=== PATIENT | male | born 1970 | race Caucasian/White ===

== ENCOUNTER 2020-02-02 12:59 | Emergency (ER) | payer SELFPAY ==
[~2020-02-02] VITALS: Ht 180.3 cm; Wt 109.1 kg
[2020-02-02 13:10] VITALS: Ht 180.3 cm; Wt 109.1 kg
[2020-02-02] MEDS ORDERED: GABAPENTIN300 MG PO (13:11)
[2020-02-02] MEDS ORDERED: PERCOCET 10-321 EAC1 PO (13:11)
[2020-02-02] MEDS ORDERED: LISINOPRIL20 MG PO (13:12)
[2020-02-02] MEDS ORDERED: HYDROCODON-ACE1 EAC2 PO (14:19)
[2020-02-02 14:52] VITALS: BP 152/84
== END 2020-02-02 14:53 | disposition home or self-care (01) ==
LOC: D.ER 12:59
DX: S32.039A Unspecified fracture of third lumbar vertebra, initial encounter for closed fracture (principal); M51.36 Other intervertebral disc degeneration, lumbar region; I10 Essential (primary) hypertension; Z72.0 Tobacco use; M54.5 Low back pain; X58.XXXA Exposure to other specified factors, initial encounter

== ENCOUNTER → 2020-04-05 | Emergency (ER) | payer OTHER ==
[~2020-04-05] VITALS: Ht 180.3 cm; Wt 104.5 kg
[~2020-04-05] MED LIST: GABAPENTIN300 MG PO; HYDROCODON-ACE1 EAC2 PO; LISINOPRIL20 MG PO; PERCOCET 10-321 EAC1 PO
[2020-04-05 11:02] VITALS: BP 156/94; Ht 180.3 cm; Wt 104.5 kg
[2020-04-05 11:51] LABS: BASOPHILS 0 % (0-2); EOSINOPHILS 0 % (0-7); HEMATOCRIT 34.2 % (42.0-54.0); HEMOGLOBIN 11.4 g/dL (13.5-17.5); IMMATURE GRANULOCYTES 0.4 % (0-5); LYMPHOCYTES 13.6 % (15-50); MCH 30.6 pg (26.0-34.0); MCHC 33.3 g/dL (31.0-37.0); MCV 91.7 fL (80.0-100.0); MEAN PLATELET VOLUME 8.3 fL (7.4-10.4); MONOCYTES 8.3 % (2-11); NEUTROPHILS 77.7 % (40-80); PLATELET COUNT 194 10x3/uL (130-400); RBC 3.73 10x6/uL (4.20-6.10); RDW 14.4 % (11.5-14.5); WBC 16.2 10x3/uL (4.8-10.8)
[2020-04-05 12:00] LABS: ANION GAP 14.7 mmol/L (8-16); CALCIUM 8.6 mg/dL (8.5-10.1); CARBON DIOXIDE 25.1 mmol/L (21.0-32.0); CREATININE - SERUM 1.3 mg/dL (0.6-1.3); POTASSIUM - SERUM 3.8 mmol/L (3.5-5.1)
[2020-04-05 12:05] LABS: ALBUMIN 4.2 g/dL (3.4-5.0); BILIRUBIN - TOTAL 0.65 mg/dL (0.2-1.3); INR 1.19 (0.85-1.17); PROTEIN - SERUM 7.7 g/dL (6.4-8.2)
== END | disposition home or self-care (01) ==
LOC: D.ER 10:50
PROVIDERS: Family Medicine
DX: L76.22 Postprocedural hemorrhage of skin and subcutaneous tissue following other procedure (principal); G89.18 Other acute postprocedural pain; M25.561 Pain in right knee; I10 Essential (primary) hypertension; Z96.651 Presence of right artificial knee joint

== ENCOUNTER 2020-10-29 18:42 | Inpatient (IN) | payer MEDICARE ==
[~2020-10-29] VITALS: Ht 180.3 cm; Wt 106.8 kg
[2020-10-29] MEDS ORDERED: BUTRANS1 EAC1 TRANSDERM (18:50)
[2020-10-29 19:25] LABS: BASOPHILS 0.1 % (0-2); EOSINOPHILS 0.7 % (0-7); HEMATOCRIT 41.3 % (42.0-54.0); HEMOGLOBIN 14.2 g/dL (13.5-17.5); IMMATURE GRANULOCYTES 0.4 % (0-5); LYMPHOCYTE ABS# 1.95 10x3/uL (1.32-3.57); LYMPHOCYTES 17.3 % (15-50); MCH 30.7 pg (26.0-34.0); MCHC 34.4 g/dL (31.0-37.0); MCV 89.4 fL (80.0-100.0); MONOCYTES 5.7 % (2-11); NEUTROPHIL ABS# 8.57 10x3/uL (1.78-5.38); NEUTROPHILS 75.8 % (40-80); PLATELET COUNT 148 10x3/uL (130-400); RBC 4.62 10x6/uL (4.20-6.10); RDW 13.4 % (11.5-14.5); WBC 11.3 10x3/uL (4.8-10.8)
[2020-10-29 19:36] LABS: CALC OSMOLALITY 273 mosm/kg (275-300); CALCIUM 9.4 mg/dL (8.5-10.1); CARBON DIOXIDE 24.4 mmol/L (21.0-32.0); CHLORIDE - SERUM 101 mmol/L (98-107); GLUCOSE 95 mg/dL (74-106); POTASSIUM - SERUM 3.7 mmol/L (3.5-5.1); SODIUM 136 mmol/L (136-145); UREA NITROGEN 17 mg/dL (7-18); eGFR NON AFRICAN AMERICAN 84 mL/min (90-120)
[2020-10-29] MEDS ORDERED: NEURONTIN600 MG PO (19:49)
[2020-10-29] MEDS ORDERED: SEROQUEL XR150 MG PO (19:49)
[2020-10-29] MEDS ORDERED: VALIUM10 MG PO (19:50)
[2020-10-29 19:52] LABS: APTT 33.4 SECONDS (22.8-39.4); INR 1.15 (0.85-1.17); PROTIME 13.6 SECONDS (11.6-15.0)
[2020-10-29 19:52] LABS: ALBUMIN 4.4 g/dL (3.4-5.0); ALKALINE PHOSPHATASE 143 U/L (30-120); ALT (SGPT) 30 U/L (10-68); AMYLASE - SERUM 19 U/L (25-115); BILIRUBIN - TOTAL 0.61 mg/dL (0.2-1.3); CKMB 3.3 U/L (0.0-3.6); CREATINE KINASE 204 UL (21-232); PROTEIN - SERUM 8.2 g/dL (6.4-8.2); TROPONIN-I < 0.017 ng/mL (0.000-0.060)
[2020-10-29 19:53] LABS: D-DIMER-QUANTITATIVE 1.22 ug/mLFEU (0.20-0.54)
[2020-10-29 19:53] LABS: LIPASE 48 U/L (73-393)
[2020-10-29 21:41] LABS: BILIRUBIN NEGATIVE (NEGATIVE); KETONE NEGATIVE (NEGATIVE); NITRITE NEGATIVE (NEGATIVE); UROBILINOGEN NORMAL mg/dL (< 2)
[2020-10-29 21:46] LABS: UDS - AMPHET NEGATIVE QUAL (NEGATIVE); UDS - BARB NEGATIVE QUAL (NEGATIVE); UDS - BENZO NEGATIVE QUAL (NEGATIVE); UDS - COCAINE NEGATIVE QUAL (NEGATIVE); UDS - OPIATE NEGATIVE QUAL (NEGATIVE); UDS - PCP NEGATIVE QUAL (NEGATIVE); UDS - THC NEGATIVE QUAL (NEGATIVE)
[2020-10-29 21:50] VITALS: BP 145/98
--- NOTE | 2020-10-29 22:41 | NUR ---
BANANA BAG, PROTONIX DRIP, AZITHROMYCIN, AND NS INFUSING AT TIME OF ADMIT.
[2020-10-29 22:42] VITALS: BP 149/98
[2020-10-29 23:00] VITALS: BP 151/107
[2020-10-29 23:26] VITALS: BP 151/107
[2020-10-30] VITALS (37 sets, daily range): BP systolic 108–179; BP diastolic 61–130
[2020-10-30 04:53] LABS: BASOPHILS 0.2 % (0-2); EOSINOPHILS 1.7 % (0-7); HEMATOCRIT 37.3 % (42.0-54.0); HEMOGLOBIN 12.6 g/dL (13.5-17.5); IMMATURE GRANULOCYTES 0.3 % (0-5); LYMPHOCYTE ABS# 1.96 10x3/uL (1.32-3.57); LYMPHOCYTES 22.6 % (15-50); MCH 30.6 pg (26.0-34.0); MCHC 33.8 g/dL (31.0-37.0); MCV 90.5 fL (80.0-100.0); MEAN PLATELET VOLUME 8.3 fL (7.4-10.4); MONOCYTES 6.6 % (2-11); NEUTROPHIL ABS# 5.95 10x3/uL (1.78-5.38); NEUTROPHILS 68.6 % (40-80); PLATELET COUNT 175 10x3/uL (130-400); RBC 4.12 10x6/uL (4.20-6.10); RDW 13.5 % (11.5-14.5); WBC 8.7 10x3/uL (4.8-10.8)
[2020-10-30 05:19] LABS: ALBUMIN 3.6 g/dL (3.4-5.0); ALKALINE PHOSPHATASE 119 U/L (30-120); ALT (SGPT) 25 U/L (10-68); BILIRUBIN - TOTAL 0.62 mg/dL (0.2-1.3); CALC OSMOLALITY 274 mosm/kg (275-300); CALCIUM 8.1 mg/dL (8.5-10.1); CARBON DIOXIDE 25.2 mmol/L (21.0-32.0); CHLORIDE - SERUM 104 mmol/L (98-107); GLUCOSE 103 mg/dL (74-106); POTASSIUM - SERUM 3.7 mmol/L (3.5-5.1); PROTEIN - SERUM 6.7 g/dL (6.4-8.2); SODIUM 137 mmol/L (136-145); UREA NITROGEN 15 mg/dL (7-18); eGFR NON AFRICAN AMERICAN 84 mL/min (90-120)
[2020-10-30 05:20] LABS: MAGNESIUM - SERUM 3.2 mg/dL (1.8-2.4)
--- NOTE | 2020-10-30 08:00 | NUR ---
DR. TURK HERE TO MEET PT. DISCUSSED BRONCH W/ HIM.
--- NOTE | 2020-10-30 08:30 | NUR ---
DR. MENA CALLED. PT REQUESTING HIS MEDICINES AND MED REC NOT DONE. DR. MENA REPORTS HE WILL BE AROUND SOON AND WILL WORK ON IT.
[2020-10-30 09:13] LABS: HEMATOCRIT 38.6 % (42.0-54.0); HEMOGLOBIN 13.3 g/dL (13.5-17.5)
--- NOTE | 2020-10-30 09:14 | NUR ---
DR. TURK HERE FOR ROUNDS.
--- NOTE | 2020-10-30 12:42 | NUR ---
BRONCH COMPLETE. BLOOD COLLECTED FROM LLL PER DR. TURK. 4 MG VERSED AND 50 MCG OF FENTANYL GIVEN. DID NOT REMAIN COMFORTABLE DURING PROCEDURE. PAGED DR. MENA ON PT'S BEHALF AND ASKED IF PATCH COULD BE REPLACED FOR PERCOCET AND HE OKAYS THIS.
--- NOTE | 2020-10-30 13:10 | NUR ---
CONSULTED DR. WOODALL. REPORTED S/P BRONCH WITH COLLECTION OF BLOOD. ORDERS RECEIVED FOR DIET, HE DOES NOT PLAN ON DOING A SCOPE.
[2020-10-30 14:58] LABS: HEMATOCRIT 41.7 % (42.0-54.0); HEMOGLOBIN 14.6 g/dL (13.5-17.5)
--- NOTE | 2020-10-30 18:40 | NUR ---
PERCOCET GIVEN FOR PAIN.
--- NOTE | 2020-10-30 18:50 | NUR ---
REPORTS HE TAKES METOPROLOL 25 MG AND ALSO THAT HE USUALLY TAKES HIS BP MEDS AT NIGHT. CALLED DR. MENA FOR METOPROLOL ORDER AND CALLED [facility] TO CHANGE TO NIGHTS.
[2020-10-30 21:49] LABS: HEMATOCRIT 39.6 % (42.0-54.0); HEMOGLOBIN 13.9 g/dL (13.5-17.5)
--- NOTE | 2020-10-30 23:18 | NUR ---
SPOKE WITH CHANO MOE ABOUT POSITIVE BLOOD CULTURES (GRAM + COCCI). NEW ORDERS TO BE PLACED.
[2020-10-31] VITALS (18 sets, daily range): BP systolic 107–164; BP diastolic 75–102
[2020-10-31 05:06] LABS: ALBUMIN 3.7 g/dL (3.4-5.0); ALKALINE PHOSPHATASE 131 U/L (30-120); ALT (SGPT) 26 U/L (10-68); BILIRUBIN - TOTAL 0.36 mg/dL (0.2-1.3); CALC OSMOLALITY 274 mosm/kg (275-300); CALCIUM 8.7 mg/dL (8.5-10.1); CARBON DIOXIDE 21.2 mmol/L (21.0-32.0); CHLORIDE - SERUM 102 mmol/L (98-107); CREATININE - SERUM 1.1 mg/dL (0.6-1.3); GLUCOSE 217 mg/dL (74-106); MAGNESIUM - SERUM 2.6 mg/dL (1.8-2.4); POTASSIUM - SERUM 4.6 mmol/L (3.5-5.1); PROTEIN - SERUM 7.3 g/dL (6.4-8.2); SODIUM 133 mmol/L (136-145); UREA NITROGEN 18 mg/dL (7-18); eGFR NON AFRICAN AMERICAN 75 mL/min (90-120)
[2020-10-31 09:07] LABS: BASOPHILS 0 % (0-2); EOSINOPHILS 0.1 % (0-7); HEMATOCRIT 39.2 % (42.0-54.0); HEMOGLOBIN 13.2 g/dL (13.5-17.5); IMMATURE GRANULOCYTES 0.4 % (0-5); LYMPHOCYTE ABS# 0.85 10x3/uL (1.32-3.57); LYMPHOCYTES 7.3 % (15-50); MCH 30.8 pg (26.0-34.0); MCHC 33.7 g/dL (31.0-37.0); MCV 91.4 fL (80.0-100.0); MEAN PLATELET VOLUME 8.7 fL (7.4-10.4); MONOCYTES 0.8 % (2-11); NEUTROPHIL ABS# 10.57 10x3/uL (1.78-5.38); NEUTROPHILS 91.4 % (40-80); PLATELET COUNT 203 10x3/uL (130-400); RBC 4.29 10x6/uL (4.20-6.10); RDW 13.5 % (11.5-14.5)
[2020-10-31 09:09] LABS: WBC 11.6 10x3/uL (4.8-10.8)
[2020-10-31 09:50] LABS: HEMATOCRIT 39.3 % (42.0-54.0); HEMOGLOBIN 13.5 g/dL (13.5-17.5)
[2020-10-31 14:11] LABS: FUNGUS STAIN Final report (())
[2020-10-31 14:31] LABS: HEMOGLOBIN 13.8 g/dL (13.5-17.5)
[2020-10-31 15:12] LABS: ACID FAST SMEAR Negative (()); AFB SPECIMEN PROCESSING Concentration (())
[2020-10-31 21:15] LABS: HEMOGLOBIN 13.1 g/dL (13.5-17.5)
[2020-11-01] VITALS (13 sets, daily range): BP systolic 98–172; BP diastolic 55–97
--- NOTE | 2020-11-01 00:09 | NUR ---
AT 2330 PT WOKE FROM DEEP SLEEP. GOT OUT OF BED AND ACCIDENTALLY PULLED LFA PIV OUT. MEDS PLACED TO RAC IV. REORIENTED PT. SEEMED DISORIENTED WHEN WAKING FROM SEROQUEL. PRESSURE HELD TO PIV SITE. SKIN CARE PROVIDED AND NEW TOP LINENS PLACED PIV SITE OOZED. PT ORIENTED AFTERWARDS. AWAKE CAN NOT GET OUT OF BED. WILL CONT TO MONITOR CLOSELY. PAIN UNDER CONTROL. STATED ON ARRIVAL PAIN WAS NOT UNDER CONTROL.
[2020-11-01 02:43] LABS: ALBUMIN 3.8 g/dL (3.4-5.0); ANION GAP 12.1 mmol/L (8-16); BILIRUBIN - TOTAL 0.38 mg/dL (0.2-1.3); CALCIUM 8.8 mg/dL (8.5-10.1); CARBON DIOXIDE 24.1 mmol/L (21.0-32.0); CREATININE - SERUM 1.2 mg/dL (0.6-1.3); MAGNESIUM - SERUM 2.4 mg/dL (1.8-2.4); POTASSIUM - SERUM 4.2 mmol/L (3.5-5.1); PROTEIN - SERUM 7.4 g/dL (6.4-8.2)
[2020-11-01 02:56] LABS: HEMATOCRIT 39.9 % (42.0-54.0); HEMOGLOBIN 13.6 g/dL (13.5-17.5); LYMPHOCYTE ABS# 1.14 10x3/uL (1.32-3.57); MCH 30.9 pg (26.0-34.0); MCHC 34.1 g/dL (31.0-37.0); MCV 90.7 fL (80.0-100.0); MEAN PLATELET VOLUME 8.5 fL (7.4-10.4); NEUTROPHIL ABS# 19.45 10x3/uL (1.78-5.38); PLATELET COUNT 195 10x3/uL (130-400); RDW 13.4 % (11.5-14.5); WBC 21.3 10x3/uL (4.8-10.8)
[2020-11-01 03:25] LABS: LYMPHOCYTES 6 % (15-50); NEUTROPHILS 93 % (40-80); PLATELET ESTIMATE DECREASED
[2020-11-01 08:20] LABS: HEMATOCRIT 39.2 % (42.0-54.0); HEMOGLOBIN 13.3 g/dL (13.5-17.5)
[2020-11-01 14:17] LABS: HEMATOCRIT 39.2 % (42.0-54.0); HEMOGLOBIN 13.2 g/dL (13.5-17.5)
[2020-11-01 21:58] LABS: HEMATOCRIT 37.9 % (42.0-54.0); HEMOGLOBIN 12.9 g/dL (13.5-17.5)
[2020-11-02] VITALS: BP 145/57
--- NOTE | 2020-11-02 01:31 | NUR ---
PT WAS SITTING IN CHAIR, IN ROOM. RECEIVED REPORT ABOUT BUPRENORPHONE PATCHES AND THAT THE PATIENT WOULD LIKE TO HAVE ONE APPLIED. CALLED AND SPOKE TO CHANO MOE ABOUT PATCHES AND SITUATION. RECEIVED TELEPHONE ORDER FROM CHANO MOE THAT IT WS OKAY TO USE PATIENT SUPPLY OF THE TRANSDERMAL PATCHES AT THIS TIME.
[2020-11-02 04:00] VITALS: BP 157/98
[2020-11-02 07:00] LABS: BASOPHILS 0 % (0-2); EOSINOPHILS 0 % (0-7); HEMATOCRIT 37.8 % (42.0-54.0); HEMOGLOBIN 12.7 g/dL (13.5-17.5); IMMATURE GRANULOCYTES 0.8 % (0-5); LYMPHOCYTE ABS# 1.36 10x3/uL (1.32-3.57); LYMPHOCYTES 6.7 % (15-50); MCH 30.7 pg (26.0-34.0); MCHC 33.6 g/dL (31.0-37.0); MCV 91.3 fL (80.0-100.0); MEAN PLATELET VOLUME 8.7 fL (7.4-10.4); MONOCYTES 3.6 % (2-11); NEUTROPHIL ABS# 18.06 10x3/uL (1.78-5.38); NEUTROPHILS 88.9 % (40-80); PLATELET COUNT 200 10x3/uL (130-400); RBC 4.14 10x6/uL (4.20-6.10); RDW 13.5 % (11.5-14.5); WBC 20.3 10x3/uL (4.8-10.8)
[2020-11-02 07:23] LABS: ALBUMIN 3.5 g/dL (3.4-5.0); ALKALINE PHOSPHATASE 118 U/L (30-120); ALT (SGPT) 35 U/L (10-68); BILIRUBIN - TOTAL 0.31 mg/dL (0.2-1.3); CALCIUM 8.6 mg/dL (8.5-10.1); CARBON DIOXIDE 23.2 mmol/L (21.0-32.0); CHLORIDE - SERUM 102 mmol/L (98-107); CREATININE - SERUM 1.1 mg/dL (0.6-1.3); GLUCOSE 191 mg/dL (74-106); MAGNESIUM - SERUM 2.3 mg/dL (1.8-2.4); POTASSIUM - SERUM 3.9 mmol/L (3.5-5.1); SODIUM 137 mmol/L (136-145); eGFR NON AFRICAN AMERICAN 75 mL/min (90-120)
[2020-11-02 07:27] LABS: CALC OSMOLALITY 281 mosm/kg (275-300); UREA NITROGEN 21 mg/dL (7-18)
[2020-11-02 08:37] VITALS: BP 145/87
[2020-11-02 12:19] VITALS: BP 157/85
[2020-11-02 16:45] VITALS: BP 157/92
[2020-11-02 17:16] LABS: BILIRUBIN NEGATIVE (NEGATIVE); KETONE NEGATIVE (NEGATIVE); NITRITE NEGATIVE (NEGATIVE); UROBILINOGEN NORMAL mg/dL (< 2)
[2020-11-02 20:16] VITALS: BP 170/90
[2020-11-03] VITALS (16 sets, daily range): BP systolic 115–174; BP diastolic 76–107
--- NOTE | 2020-11-03 01:06 | NUR ---
PT WAS SITTING ON THE SIDE OF BED. NO DISTRESS NOTED. NO COMPLAINTS OF PAIN AT THAT TIME. RESPIRATIONS WNL. ALERT AND ORIENTED. AT BEDSIDE. CALL LIGHT IN REACH
[2020-11-03 06:26] LABS: BASOPHILS 0.1 % (0-2); EOSINOPHILS 0 % (0-7); HEMATOCRIT 37.2 % (42.0-54.0); HEMOGLOBIN 12.6 g/dL (13.5-17.5); IMMATURE GRANULOCYTES 3.7 % (0-5); LYMPHOCYTE ABS# 1.25 10x3/uL (1.32-3.57); LYMPHOCYTES 7.3 % (15-50); MCH 30.7 pg (26.0-34.0); MCHC 33.9 g/dL (31.0-37.0); MCV 90.7 fL (80.0-100.0); MEAN PLATELET VOLUME 8.8 fL (7.4-10.4); MONOCYTES 5.2 % (2-11); NEUTROPHIL ABS# 14.42 10x3/uL (1.78-5.38); NEUTROPHILS 83.7 % (40-80); PLATELET COUNT 192 10x3/uL (130-400); RDW 13.3 % (11.5-14.5); WBC 17.2 10x3/uL (4.8-10.8)
[2020-11-03 06:55] LABS: ALBUMIN 3.4 g/dL (3.4-5.0); ANION GAP 12.9 mmol/L (8-16); BILIRUBIN - TOTAL 0.33 mg/dL (0.2-1.3); CALCIUM 8.3 mg/dL (8.5-10.1); CARBON DIOXIDE 26.3 mmol/L (21.0-32.0); CREATININE - SERUM 1.2 mg/dL (0.6-1.3); MAGNESIUM - SERUM 2.2 mg/dL (1.8-2.4); POTASSIUM - SERUM 4.2 mmol/L (3.5-5.1); PROTEIN - SERUM 6.5 g/dL (6.4-8.2)
--- NOTE | 2020-11-03 08:27 | NUR ---
AAOX4 UPON ENTERING. ADMINISTERED MORNING MEDICATION AND PRN ATIVAN. TOELRATED WELL. BREAKFAST AT BEDSIDE. RESTING COMFORTABLY. DENIES ANY NEEDS. BED IN LOWEST POSITION, BED RAILS X2, CALL LIGHT WITHIN REACH. WILL CONTINUE POC.
--- NOTE | 2020-11-03 10:15 | NUR ---
PT ARRIVED TO UNIT AT THIS TIME PER DR TURK ORDERS FOR INTUBATION. HE IS ALERT AND ORIENTED, NERVOUS, BUT STATES HE UNDERSTANDS WHY HE NEEDS TO BE INTUBATED. HE HAS BRIGHT RED BLOOD ON HIS JAMISON FROM SPITTING OUT BLOOD, HE REQUESTS A SPIT CUP BECAUSE HE SAYS HE FREQUENTLY SPITS BLOOD UP SINCE THURSDAY. CONNECTED TO MONITORING EQUIPMENT. WILL NOTIFY DR TURK PT IS HERE FOR FURTHER ORDERS. PT CALLED AND NOTIFIED HER WHEN HE ARRIVED TO UNIT. SHE REQUESTS TO SPEAK WITH DR TURK, WILL NOTIFY HIM OF THIS TOO.
--- NOTE | 2020-11-03 10:25 | NUR ---
PT SPIT UP MORE FRESH BLOOD. CALLED TURK, ORDERED TO PUT ON NPO STATUS AND TRANSFERRED TO ICU FOR INTUBATION AND BRONCHOSCOPY. WHEELED OVER VIA WHEELCHAIR. BEDSIDE REPORT GIVEN TO ICU NURSE.
--- NOTE | 2020-11-03 10:48 | NUR ---
PER DR TURK, OBTAIN CONSENT FOR BRONCHOSCOPY AND CALL ANESTHESIA FOR INTUBATION, WILL DO BRONCH AFTER INTUBATION. SPOKE WITH DR BUCHANAN TO PROVIDE UPDATES ON PT. DR WOODALL STATES HE DOES NOT THINK THE BLEEDING IS GI RELATED, HE THINKS IT IS RESPIRATORY-RELATED, BUT IF IT IS DETERMINED THAT THE BLEEDING IS GI RELATED TO THEN LET HIM KNOW. HE STATES THAT IF IT WERE ESOPHAGEAL VARIGIES PT WOULD BE VOMITING UP BLOOD. ANESTHESIA PAGED AND NOTIFIED FOR PT TO BE INTUBATED.
[2020-11-03 11:23] LABS: INR 1.24 (0.85-1.17); PROTIME 14.4 SECONDS (11.6-15.0)
--- NOTE | 2020-11-03 11:54 | NUR ---
PT HAS BEEN INTUBATED BY ANESTHESIA, FOLLOWING THAT BRONCHOSCOPY WAS PERFORMED BY DR TURK WHO STATED THE BLEED IS NOT FROM RESPIRATORY, DR TURK THEN SPOKEN ON THE PHONE TO PTS DAUGHTER ALINE JAVEDSADIE CALLED AND UPDATED BY DR TURK AND THIS NURSE; DR WOODALL STATED HE WOULD BE BY IN A LITTLE BIT TO SEE PT. ALSO ORDERS FOR CVL CONSENT RECIEVED BY DR TURK TO PERFORM, CONSENTS OBTAINED BY PTS DAUGHTER. WILL CONTINUE TO CLOSELY OBSERVE.
[2020-11-03 12:06] LABS: BASOPHILS 0.1 % (0-2); EOSINOPHILS 0.1 % (0-7); HEMATOCRIT 36.7 % (42.0-54.0); HEMOGLOBIN 12.7 g/dL (13.5-17.5); IMMATURE GRANULOCYTES 5.8 % (0-5); LYMPHOCYTE ABS# 0.99 10x3/uL (1.32-3.57); LYMPHOCYTES 5.6 % (15-50); MCH 31.6 pg (26.0-34.0); MCHC 34.6 g/dL (31.0-37.0); MCV 91.3 fL (80.0-100.0); MONOCYTES 5.4 % (2-11); NEUTROPHIL ABS# 14.62 10x3/uL (1.78-5.38); PLATELET COUNT 194 10x3/uL (130-400); RBC 4.02 10x6/uL (4.20-6.10); RDW 13.4 % (11.5-14.5); WBC 17.6 10x3/uL (4.8-10.8)
[2020-11-03 12:15] LABS: ANION GAP 12.6 mmol/L (8-16); CALCIUM 8.4 mg/dL (8.5-10.1); CARBON DIOXIDE 26.8 mmol/L (21.0-32.0); CREATININE - SERUM 1.3 mg/dL (0.6-1.3); POTASSIUM - SERUM 4.4 mmol/L (3.5-5.1)
--- NOTE | 2020-11-03 14:53 | NUR ---
BEDSIDE CVL PLACED BY DR TURK, AFTER XRAY HE STATED IS OKAY FOR USE. ALSO VOISE TO DO EGD TODAY, CONSENTS OBTAINED FROM PTS DAUGHTER. VSS. WILL CONTINUE PLAN OF CARE.
--- NOTE | 2020-11-03 15:24 | NUR ---
1455 PT 2303, ON VENTALOR WITH DIPRAVAN SEDATION. 1510 124/82 91 21 98% SAT 1515 116/84 94 20 98% SAT 1517 PROCEDURE COMPLETE, DX EGD, NOTHING TO TREAT
--- NOTE | 2020-11-03 15:44 | NUR ---
SHANNON PLACED AT THIS TIME PER ORDERS, 16F, CLEAR YELLOW URINE FLOWING INTO CLOSED UNIT.
[2020-11-04] VITALS (23 sets, daily range): BP systolic 112–163; BP diastolic 69–95
--- NOTE | 2020-11-04 06:06 | NUR ---
AM LABS REVIEWED, NOTHING TO TREAT PER ELECTROLYTE PROTOCOL.
[2020-11-04 08:46] LABS: HEMATOCRIT 38.4 % (42.0-54.0); HEMOGLOBIN 12.6 g/dL (13.5-17.5); LYMPHOCYTE ABS# 1.37 10x3/uL (1.32-3.57); MCH 31.3 pg (26.0-34.0); MCHC 32.8 g/dL (31.0-37.0); MEAN PLATELET VOLUME 8.8 fL (7.4-10.4); NEUTROPHIL ABS# 13.19 10x3/uL (1.78-5.38); PLATELET COUNT 206 10x3/uL (130-400); RBC 4.02 10x6/uL (4.20-6.10); RDW 13.8 % (11.5-14.5); WBC 16.7 10x3/uL (4.8-10.8)
[2020-11-04 08:50] LABS: CALC OSMOLALITY 284 mosm/kg (275-300); CALCIUM 8.2 mg/dL (8.5-10.1); CARBON DIOXIDE 26.1 mmol/L (21.0-32.0); CHLORIDE - SERUM 102 mmol/L (98-107); GLUCOSE 216 mg/dL (74-106); POTASSIUM - SERUM 4.5 mmol/L (3.5-5.1); SODIUM 137 mmol/L (136-145); UREA NITROGEN 24 mg/dL (7-18); eGFR NON AFRICAN AMERICAN 84 mL/min (90-120)
[2020-11-04 08:51] LABS: MCV 95.5 fL (80.0-100.0)
[2020-11-04 08:56] LABS: ALBUMIN 3.3 g/dL (3.4-5.0); ALKALINE PHOSPHATASE 100 U/L (30-120); ALT (SGPT) 50 U/L (10-68); BILIRUBIN - TOTAL 0.37 mg/dL (0.2-1.3); PROTEIN - SERUM 6.5 g/dL (6.4-8.2)
[2020-11-04 09:10] LABS: LYMPHOCYTES 17 % (15-50); NEUTROPHILS 82 % (40-80); PLATELET ESTIMATE NORMAL
--- NOTE | 2020-11-04 10:22 | NUR ---
TUBE FEEDS STARTED AT THIS TIME PER DR TURK ORDERS. OGT VERIFICATION VIA AUSCULTATION/ASPIRATION. VSS. WILL CONTINUE PLAN OF CARE.
--- NOTE | 2020-11-04 17:17 | NUR ---
PTS CAME BY TO SEE PT AT THIS TIME. UPDATES PROVIDED. VSS. NO ACUTE DISTRESS NOTED. SHE STATED SHE WILL BE BY TOMORROW AGAIN.
--- NOTE | 2020-11-04 19:15 | NUR ---
PT SELF EXTUBATED, DR. TURK WAS CALLED PUT PT ON BIPAP 06/03/50% PT TOLERATING WELL
--- NOTE | 2020-11-04 19:31 | NUR ---
PT SELF EXTUBATED, SEDATION IMMEDIATELY STOPPED, PT PLACED ON BIPAP 50% PER RT, PT DROWSY BUT AROUSES EASILY TO VOICE AND IS ABLE TO FOLLOW COMMANDS, VSS, SAT 95%, MONITORING FROM BEDSIDE AT THIS TIME. DR TURK NOTIFIED, ORDERS RECEIVED.
--- NOTE | 2020-11-04 20:03 | NUR ---
PT CALLED PER PT REQUEST AND MESSAGE DELIVERED, UPDATED REGARDING NEW PLAN OF CARE-ALL QUESTIONS ANSWERED.
[2020-11-05] VITALS (19 sets, daily range): BP systolic 112–169; BP diastolic 65–99; Ht 180.3 cm; Wt 106.8 kg
[2020-11-05 08:13] LABS: BASOPHILS 0.1 % (0-2); EOSINOPHILS 0 % (0-7); HEMATOCRIT 37.9 % (42.0-54.0); HEMOGLOBIN 12.6 g/dL (13.5-17.5); IMMATURE GRANULOCYTES 8.3 % (0-5); LYMPHOCYTES 6.9 % (15-50); MCH 30.6 pg (26.0-34.0); MCHC 33.2 g/dL (31.0-37.0); MEAN PLATELET VOLUME 8.9 fL (7.4-10.4); MONOCYTES 5.5 % (2-11); NEUTROPHIL ABS# 13.71 10x3/uL (1.78-5.38); NEUTROPHILS 79.2 % (40-80); PLATELET COUNT 191 10x3/uL (130-400); RBC 4.12 10x6/uL (4.20-6.10); RDW 13.2 % (11.5-14.5); WBC 17.3 10x3/uL (4.8-10.8)
[2020-11-05 08:42] LABS: ALKALINE PHOSPHATASE 93 U/L (30-120); ALT (SGPT) 42 U/L (10-68); BILIRUBIN - TOTAL 0.47 mg/dL (0.2-1.3); CALC OSMOLALITY 279 mosm/kg (275-300); CALCIUM 8.2 mg/dL (8.5-10.1); CHLORIDE - SERUM 99 mmol/L (98-107); CREATININE - SERUM 0.9 mg/dL (0.6-1.3); GLUCOSE 213 mg/dL (74-106); POTASSIUM - SERUM 4.4 mmol/L (3.5-5.1); PROTEIN - SERUM 5.9 g/dL (6.4-8.2); SODIUM 135 mmol/L (136-145); UREA NITROGEN 25 mg/dL (7-18); eGFR NON AFRICAN AMERICAN > 90 mL/min (90-120)
--- NOTE | 2020-11-05 10:47 | NUR ---
DR CAMPBELL CONTACTED R/T PT REQUESTING BETTER PAIN CONTROL AND REPORTS HE IS ON PAIN MANAGEMENT. NEW ORDER REC' FOR MORPHINE 15 MG CR BID. ORDER PLACED ADN MED GIVEN.
--- NOTE | 2020-11-05 21:00 | NUR ---
A&O X 4, SPO2 90% ON 2L. DEEP BREATHING ENCOURAGED. CTM.
[2020-11-06 00:39] VITALS: BP 137/75
[2020-11-06 05:15] VITALS: BP 137/63
--- NOTE | 2020-11-06 05:28 | NUR ---
I have reviewed this patient and I concur with the Shift Assessment completed by the Licensed Practical Nurse today this shift.
[2020-11-06 06:39] LABS: APTT 26.3 SECONDS (22.8-39.4)
[2020-11-06 06:40] LABS: INR 1.19 (0.85-1.17)
[2020-11-06 06:44] LABS: CALC OSMOLALITY 284 mosm/kg (275-300); CALCIUM 8.5 mg/dL (8.5-10.1); CARBON DIOXIDE 31.5 mmol/L (21.0-32.0); CHLORIDE - SERUM 99 mmol/L (98-107); CREATININE - SERUM 1.1 mg/dL (0.6-1.3); MAGNESIUM - SERUM 2.1 mg/dL (1.8-2.4); POTASSIUM - SERUM 3.9 mmol/L (3.5-5.1); SODIUM 135 mmol/L (136-145); UREA NITROGEN 27 mg/dL (7-18); eGFR NON AFRICAN AMERICAN 75 mL/min (90-120)
--- NOTE | 2020-11-06 06:45 | NUR ---
RECEIVED BEDSIDE REPORT. PT LAYING IN BED, A&O X4. CVL TO LEFT IJ, PATENT AND INFUSING, NO REDNESS OR SWELLING. O2 SAT 97% ON 2L, VIA NC. PT ABLE TO AMBULATE AD OSKAR. EDUCATED PT ON CL AND NEEDS, VERBALIZED UNDERSTANDING. BED LOW, CL IN REACH.
[2020-11-06 06:46] LABS: GLUCOSE 271 mg/dL (74-106)
[2020-11-06 07:38] LABS: BASOPHILS 0.2 % (0-2); EOSINOPHILS 0 % (0-7); HEMATOCRIT 38.2 % (42.0-54.0); HEMOGLOBIN 13.4 g/dL (13.5-17.5); IMMATURE GRANULOCYTES 10.6 % (0-5); LYMPHOCYTE ABS# 1.48 10x3/uL (1.32-3.57); LYMPHOCYTES 8.9 % (15-50); MCH 31.3 pg (26.0-34.0); MCHC 35.1 g/dL (31.0-37.0); MEAN PLATELET VOLUME 8.8 fL (7.4-10.4); MONOCYTES 6.4 % (2-11); NEUTROPHIL ABS# 12.27 10x3/uL (1.78-5.38); NEUTROPHILS 73.9 % (40-80); PLATELET COUNT 160 10x3/uL (130-400); RBC 4.28 10x6/uL (4.20-6.10); WBC 16.6 10x3/uL (4.8-10.8)
[2020-11-06 07:43] VITALS: BP 135/60
[2020-11-06 07:46] LABS: MCV 89.3 fL (80.0-100.0)
[2020-11-06 12:35] VITALS: BP 125/80
[2020-11-06 15:00] VITALS: BP 120/82
--- NOTE | 2020-11-06 15:14 | NUR ---
OT NOTE: SEVERAL ATTEMPTS TO EVAL PT BUT UNABLE TO COMPLETE. WILL RE ATTEMPT TOMORROW. BON FISHER, OTR/L
[2020-11-06 16:09] LABS: ACID FAST SMEAR Negative (()); AFB SPECIMEN PROCESSING Concentration (())
--- NOTE | 2020-11-06 17:15 | NUR ---
PT C/O PAIN 8/10, GENERALIZED, PROVIDED MEDS PER ORDER, TOLERATED WELL. BED LOW, CL IN REACH.
[2020-11-06 21:11] VITALS: BP 167/82
--- NOTE | 2020-11-07 02:05 | NUR ---
REC'D WALKING ROUNDS CHGE OF SHIFT.MET COMING BACK FROM VENDING MACHINE EATING CUP ICECREAM.CHIPS, COOKIES SKINS HONEY BUN DECLINED FSBS AT WILL CONTINUE TO MONITOR FOR ANY CHGES AND FOLLOW CURRENT PLAN OF CARE.
[2020-11-07 04:37] VITALS: BP 175/87
--- NOTE | 2020-11-07 05:00 | NUR ---
I have reviewed this patient and I concur with the Shift Assessment completed by the Licensed Practical Nurse today this shift.
[2020-11-07 07:47] VITALS: BP 133/83
[2020-11-07 08:56] LABS: HEMATOCRIT 40.4 % (42.0-54.0); HEMOGLOBIN 13.9 g/dL (13.5-17.5); LYMPHOCYTE ABS# 2.72 10x3/uL (1.32-3.57); MCH 31.2 pg (26.0-34.0); MCHC 34.4 g/dL (31.0-37.0); MCV 90.8 fL (80.0-100.0); MEAN PLATELET VOLUME 8.8 fL (7.4-10.4); NEUTROPHIL ABS# 11.82 10x3/uL (1.78-5.38); PLATELET COUNT 140 10x3/uL (130-400); RBC 4.45 10x6/uL (4.20-6.10); RDW 13.4 % (11.5-14.5); WBC 18.3 10x3/uL (4.8-10.8)
[2020-11-07 09:10] LABS: CALC OSMOLALITY 285 mosm/kg (275-300); CALCIUM 8.6 mg/dL (8.5-10.1); CHLORIDE - SERUM 101 mmol/L (98-107); GLUCOSE 226 mg/dL (74-106); MAGNESIUM - SERUM 2.2 mg/dL (1.8-2.4); POTASSIUM - SERUM 3.7 mmol/L (3.5-5.1); SODIUM 137 mmol/L (136-145); UREA NITROGEN 26 mg/dL (7-18); eGFR NON AFRICAN AMERICAN 84 mL/min (90-120)
[2020-11-07 11:11] LABS: FUNGUS STAIN Final report (())
[2020-11-07 12:25] VITALS: BP 143/87
--- NOTE | 2020-11-07 12:56 | NUR ---
Nutrition follow-up: Pt receiving a regular diet PO intake fair to good at some meals Labs reviewed Wt: 237# Pt will be NPO with intubation for Bronch 11/08/20 RDN follow-up: 11/09/20
[2020-11-07 13:02] LABS: LYMPHOCYTES 27 % (15-50); MONOCYTES 13 % (2-11); NEUTROPHILS 52 % (40-80)
[2020-11-07 13:03] LABS: PLATELET ESTIMATE NORMAL
[2020-11-07 17:30] VITALS: BP 167/100
--- NOTE | 2020-11-07 17:58 | NUR ---
CHANGED PT CENTRAL LINE DRESSING AND HUBS. PATIENT TOLERATED WELL. SITE WNL.
--- NOTE | 2020-11-07 18:55 | NUR ---
bedside shift report completed RT in room with pt, pt with no distress noted, will contine to monitor
[2020-11-07 20:59] VITALS: BP 130/94
[2020-11-08] VITALS: BP 109/64
--- NOTE | 2020-11-08 03:46 | NUR ---
pt approx 1/4 cup bright red hemoptysis, VSS paged dr onofre
--- NOTE | 2020-11-08 03:56 | NUR ---
spoke to dr onofre notified of pt with 1/ c bright red hemoptysis new orders to give racimic/epi UD, and CXR continue to monitor
[2020-11-08 04:00] VITALS: BP 131/76
[2020-11-08 05:53] LABS: BASOPHILS 0.3 % (0-2); EOSINOPHILS 0 % (0-7); HEMATOCRIT 40.1 % (42.0-54.0); HEMOGLOBIN 13.8 g/dL (13.5-17.5); IMMATURE GRANULOCYTES 11.5 % (0-5); LYMPHOCYTE ABS# 1.37 10x3/uL (1.32-3.57); LYMPHOCYTES 6.4 % (15-50); MCHC 34.4 g/dL (31.0-37.0); MCV 90.1 fL (80.0-100.0); MEAN PLATELET VOLUME 8.5 fL (7.4-10.4); MONOCYTES 5.5 % (2-11); NEUTROPHIL ABS# 16.39 10x3/uL (1.78-5.38); NEUTROPHILS 76.3 % (40-80); PLATELET COUNT 161 10x3/uL (130-400); RBC 4.45 10x6/uL (4.20-6.10); RDW 13.2 % (11.5-14.5); WBC 21.5 10x3/uL (4.8-10.8)
[2020-11-08 06:04] LABS: CALCIUM 8.7 mg/dL (8.5-10.1); CARBON DIOXIDE 27.9 mmol/L (21.0-32.0); CHLORIDE - SERUM 98 mmol/L (98-107); CREATININE - SERUM 1.1 mg/dL (0.6-1.3); MAGNESIUM - SERUM 2.4 mg/dL (1.8-2.4); SODIUM 133 mmol/L (136-145); UREA NITROGEN 25 mg/dL (7-18); eGFR NON AFRICAN AMERICAN 75 mL/min (90-120)
[2020-11-08 06:05] LABS: INR 1.19 (0.85-1.17)
[2020-11-08 06:06] LABS: APTT 26.8 SECONDS (22.8-39.4); CALC OSMOLALITY 280 mosm/kg (275-300); GLUCOSE 289 mg/dL (74-106); POTASSIUM - SERUM 4.7 mmol/L (3.5-5.1)
[2020-11-08 08:16] VITALS: BP 131/78
--- NOTE | 2020-11-08 09:59 | NUR ---
I have reviewed this patient and I concur with the Shift Assessment completed by the Licensed Practical Nurse today this shift.
--- NOTE | 2020-11-08 10:43 | NUR ---
PATIENT C/O GAS PAIN ORDERED TUMS AND ADMINISTERED. CONTINUE WITH PLAN OF CARE
[2020-11-08 12:41] VITALS: BP 147/79
[2020-11-08 15:13] LABS: MACROPHAGES BF 7 %; NEUT - BF 84 %
--- NOTE | 2020-11-08 16:41 | NUR ---
OT NOTE: PT COMPLETED EOB SITTING WITH MOD I. PT COMPLETED BED MOB WITH SBA. PT COMPLETED ADL MOB SBA. PT EXHIBITED BUE AROM WITH FUNCTIONAL TASKS. PT DID WELL. THANK YOU,BUCK JOHN
[2020-11-08 17:06] VITALS: BP 138/70
[2020-11-08 20:00] VITALS: BP 130/82
[2020-11-09] VITALS: BP 122/72
[2020-11-09 04:00] VITALS: BP 123/72
[2020-11-09 04:25] LABS: HEMATOCRIT 40.6 % (42.0-54.0); HEMOGLOBIN 13.8 g/dL (13.5-17.5); MCV 91.2 fL (80.0-100.0); MEAN PLATELET VOLUME 8.9 fL (7.4-10.4); NEUTROPHIL ABS# 21.38 10x3/uL (1.78-5.38); PLATELET COUNT 165 10x3/uL (130-400); RBC 4.45 10x6/uL (4.20-6.10); RDW 13.5 % (11.5-14.5); WBC 27.3 10x3/uL (4.8-10.8)
[2020-11-09 04:27] LABS: APTT 24.8 SECONDS (22.8-39.4); INR 1.16 (0.85-1.17); PROTIME 13.7 SECONDS (11.6-15.0)
[2020-11-09 04:31] LABS: ANION GAP 10.4 mmol/L (8-16); CALCIUM 8.7 mg/dL (8.5-10.1); CARBON DIOXIDE 30.3 mmol/L (21.0-32.0); CREATININE - SERUM 1.2 mg/dL (0.6-1.3); MAGNESIUM - SERUM 2.2 mg/dL (1.8-2.4); POTASSIUM - SERUM 4.7 mmol/L (3.5-5.1)
[2020-11-09 04:52] LABS: LYMPHOCYTES 21 % (15-50); MONOCYTES 1 % (2-11); NEUTROPHILS 71 % (40-80); PLATELET ESTIMATE DECREASED
--- NOTE | 2020-11-09 07:14 | NUR ---
PT WAS ASSESSED AT THE BEGINNING OF THE SHIFT. HE IS ALERT AND ORIENTED, ABLE TO VERBALIZE NEEDS. HE WAS IN BED ASLEEP WITH ALL NIGHT UNTIL WE WOKE THEM UP FOR HIS HIBICLENS SHOWER AND BED CHANGE. WE THEN CHANGED THE LINENS AND HE REFUSED TO LEAVE HIS PJ BOTTOMS OFF AND THE BED WAS THEN DIRTY AGAIN. HE KNOWS HE IS NPO BUT WE FEEL HE HAS HAD A LITTLE BIT OF COFFEE.
[2020-11-09 08:55] VITALS: BP 149/94
--- NOTE | 2020-11-09 09:10 | NUR ---
PATIENT IS VERY ANXIOUS ABOUT PROCEDURE, STATED HE CALLED HIS FATHER AND COTTON BREEDER AND BOTH ADVISED HIM TO GET A SECOND OPINION AND HAVE PROCEDURE DONE AT A LATER TIME, PATIENT HAD CALLED [facility] SEVERAL TIMES THROUGHOUT THE EVENING AND THIS MORNING CAUSING DIRECTOR TO COME AND SPEAK TO TATIANA. PATIENT IS READY FOR DC HOME, IR DOCTOR AND JULIANA DENNIS CAME TO TALK TO PATIENT.SPOKE TO CHANO NICHOLE AND PATIENT NEEDS TO SEE DENTISTRY TEACHER BEFORE AGREEABLE TO DC. CONTINUE WITH PLAN OF CARE
--- NOTE | 2020-11-09 09:46 | NUR ---
PATIENT REFUSES TO TAKE ABX AND FLUIDS. STATES WANTS TO DC AND WANTS IV OUT. CHANO BARFIELD AWARE AND STATES NOT DC PATIENT AT THIS TIME. PATIENT AWARE AND ANGRY BUT STATES NOT SIGNING AMA. STATES WANTS TO BE DISCHARGED. STATES "THIS IS GETTING RIDICULOUS REALLY FAST." STATES WANTS TO TALK TO PARKER, PATIENT'S NURSE. PATIENT AWARE THAT NURSE IS IN ANOTHER ROOM AND WILL COME SEE HIM AFTER.
--- NOTE | 2020-11-09 09:49 | NUR ---
PATIENT COMING OUT TO DESK TO TALK TO NURSE. MADE PATIENT AWARE AGAIN THAT NURSE IS IN ANOTHER ROOM AND WILL SEE HIM AFTER.
--- NOTE | 2020-11-09 12:08 | NUR ---
PATIENT TO DC HOME, HAD JULIANA MONSON REMOVE PT IJ. PENDING PAPERWORK. CONTINUE WITH PLAN OF CARE
[2020-11-09] MEDS ORDERED: COLACE100 MG PO (12:09)
[2020-11-09] MEDS ORDERED: PROTONIX40 MG PO (12:09)
[2020-11-09] MEDS ORDERED: FLORAJEN3 CAPS460 MG PO (12:09)
[2020-11-09] MEDS ORDERED: MUCINEX DM ER1 EAC1 PO (12:09)
[2020-11-09] MEDS ORDERED: NICODERM CQ1 EAC3 TRANSDERM (12:10)
[2020-11-09] MEDS ORDERED: LOPRESSOR25 MG PO (12:10)
[2020-11-09] MEDS ORDERED: TESSALON PERLE100 MG PO (12:10)
[2020-11-09] MEDS ORDERED: IPRAT-ALBUT 0.5-3 ML INH (12:11)
[2020-11-09] MEDS ORDERED: ATROVENT 0.02%2.5 ML UPD (12:11)
[2020-11-09] MEDS ORDERED: VITAMIN B-1100 M1 PO (12:11)
[2020-11-09] MEDS ORDERED: FOLIC ACID1 MG PO (12:11)
[2020-11-09] MEDS ORDERED: VALIUM5 MG PO (12:12)
--- NOTE | 2020-11-09 13:39 | NUR ---
Nutrition follow-up: Diet order: NPO for procedure Pt was receiving a regular diet as tolerated PO intake good- 100% of most meals Labs reviewed Wt: 235# RDN will follow-up: 11/12/20
[2020-11-09] MEDS ORDERED: PREDNISONE10 MG PO (14:07)
--- NOTE | 2020-11-09 14:17 | NUR ---
I have reviewed this patient and I concur with the Shift Assessment completed by the Licensed Practical Nurse today this shift.
--- NOTE | 2020-11-09 14:33 | MORECARE ---
CASE MANAGEMENT DISCHARGE SUMMARY PATIENT: ANGEL KAUR UNIT: [id number] ADM DATE: 10/29/20 AGE: 50 : 68 SEX: M ROOM/BED: D.2209 AUTHOR: CHRISTIAN,DOC PHYSICIAN: REFERRING PHYSICIAN: ADELINA LOPEZ MD DATE OF SERVICE: 11/09/20 Case Management Discharge Planning Summary DCP REVIEW SUMMARY ANTICIPATED D/C DATE: EXPECTED LOS : CASE STATUS: DCP Initiated INITIAL REVIEW: 11/06/2020 INITIAL REVIEWER: Alivia Henry FINAL DISCHARGE DISPOSITION: : FINAL REVIEWER: FINAL REVIEW DATE: DCP Focus Questions & Answers - Added on: QUESTION: ANSWER : PROVIDER NETWORKING REVIEW DATE: 11/09/2020 SERVICE TYPE: Durable Medical Equipment REVIEWER: Alivia Henry PROVIDER: FINAL PROVIDER? : FINAL DATE/TIME: CT PATIENT: ANGEL KAUR ENCOUNTER: [id number] MEDICAL RECORD#: [id number] ADMISSION DATE: 10/29/2020 DISCHARGE DATE: ATTENDING MD: ADELINA BAÑUELOS : AGE: 50 MARITAL STATUS: S DC PLAN ID: [id number] FACILITY: [facility] PRINTED ON: 11/09/20 14:33 CT All edits/amendments must be made on the electronic document DICTATION DATE: 11/09/201432 VENDING SUPERVISOR: GERONIMO 11/09/201432 RPT#: [id number] DC DATE: STATUS: ADM IN [facility] [address] [place] [address] END OF REPORT
--- NOTE | 2020-11-09 14:47 | MORECARE ---
CASE MANAGEMENT DISCHARGE SUMMARY PATIENT: ANGEL KAUR UNIT: [id number] ADM DATE: 10/29/20 AGE: 50 : 68 SEX: M ROOM/BED: D.2209 AUTHOR: CHRISTIAN,DOC PHYSICIAN: REFERRING PHYSICIAN: ADELINA LOPEZ MD DATE OF SERVICE: 11/09/20 Case Management Discharge Planning Summary COMMENTS ENTERED DATE: 11/09/20 14:33 CT COMMENT TYPE: Discharge Planning REVIEWER: Alivia Henry CM met with patient at bedside after obtaining verbal consent. CM discussed availability / needs of home health, REHAB and medical equipment. PATIENT DENIES ANY DISCHARGE NEEDS OTHER THAN A NEBULIZER. I HAVE FAXED ORDER TO [facility] AND THEY WILL DELIVER TO PATIENT'S HOUSE. IMM SIGNED AND PLACED ON CHART. CM TO FOLLOW AND ASSIST NEEDED. DCP REVIEW SUMMARY ANTICIPATED D/C DATE: EXPECTED LOS : CASE STATUS: DCP Initiated INITIAL REVIEW: 11/06/2020 INITIAL REVIEWER: Alivia Henry FINAL DISCHARGE DISPOSITION: : FINAL REVIEWER: FINAL REVIEW DATE: DCP Focus Questions & Answers - Added on: QUESTION: ANSWER : PROVIDER NETWORKING REVIEW DATE: 11/09/2020 SERVICE TYPE: Durable Medical Equipment REVIEWER: Alivia Henry PROVIDER: FINAL PROVIDER? : FINAL DATE/TIME: CT PATIENT: ANGEL KAUR ENCOUNTER: [id number] MEDICAL RECORD#: [id number] ADMISSION DATE: 10/29/2020 DISCHARGE DATE: ATTENDING MD: ADELINA BAÑUELOS : AGE: 50 MARITAL STATUS: S DC PLAN ID: [id number] FACILITY: [facility] PRINTED ON: 11/09/20 14:47 CT All edits/amendments must be made on the electronic document DICTATION DATE: 11/09/201446 CAREER RESOURCE TECHNICIAN: DM 11/09/201446 RPT#: [id number] DC DATE: STATUS: ADM IN [facility] [address] [place] [address] END OF REPORT
[2020-11-09 16:09] LABS: FUNGUS STAIN Final report (())
[2020-11-09 18:08] LABS: ACID FAST SMEAR Negative (()); AFB SPECIMEN PROCESSING Concentration (())
[2020-11-12 15:11] LABS: FUNGUS MYCOLOGY CULTURE Preliminary report (())
[2020-11-13 10:12] LABS: FUNGUS CULTURE RESULT 1 Candida albicans (())
== END 2020-11-09 15:40 | disposition home or self-care (01) | DRG 193 ==
LOC: D.ER 18:42 → D.MS 21:17 → D.ICU 21:17 → D.MS 11-01 11:38 → D.ICU 11-03 10:11 → D.MS 11-05 18:25
PROVIDERS: Emergency Medicine; Family Medicine; Internal Medicine Pulmonary Disease; Radiology Diagnostic Radiology; ADMIT Family Medicine Adult Medicine; ATTEND Family Medicine Adult Medicine
PROC: 0B9J8ZX Drainage of Left Lower Lung Lobe, Via Natural or Artificial Opening Endoscopic, Diagnostic (ICD-10-PCS; principal; 2020-10-30)
PROC: 05HN33Z Insertion of Infusion Device into Left Internal Jugular Vein, Percutaneous Approach (ICD-10-PCS; 2020-11-03)
PROC: 0DJ08ZZ Inspection of Upper Intestinal Tract, Via Natural or Artificial Opening Endoscopic (ICD-10-PCS; 2020-11-03)
PROC: 0B9J8ZX Drainage of Left Lower Lung Lobe, Via Natural or Artificial Opening Endoscopic, Diagnostic (ICD-10-PCS; 2020-11-03)
PROC: 0B9M8ZX Drainage of Bilateral Lungs, Via Natural or Artificial Opening Endoscopic, Diagnostic (ICD-10-PCS; 2020-11-08)
PROC: 0B918ZX Drainage of Trachea, Via Natural or Artificial Opening Endoscopic, Diagnostic (ICD-10-PCS; 2020-11-08)
DX: J18.9 Pneumonia, unspecified organism (principal); J96.00 Acute respiratory failure, unspecified whether with hypoxia or hypercapnia; R04.2 Hemoptysis; F17.203 Nicotine dependence unspecified, with withdrawal; J69.0 Pneumonitis due to inhalation of food and vomit; D64.9 Anemia, unspecified; I10 Essential (primary) hypertension; G89.29 Other chronic pain; E66.9 Obesity, unspecified; Z68.33 Body mass index [BMI] 33.0-33.9, adult; F10.10 Alcohol abuse, uncomplicated; M51.36 Other intervertebral disc degeneration, lumbar region

== ENCOUNTER 2020-11-11 10:18 | Inpatient (IN) | payer MEDICARE ==
[2020-11-11] VITALS (56 sets, daily range): BP systolic 76–122; BP diastolic 37–80; BMI 35.2
[~2020-11-11] VITALS: Ht 180.3 cm; Wt 108.4 kg
[~2020-11-11 10:18] MED LIST changes: +ATROVENT 0.02%2.5 ML UPD; +BUTRANS1 EAC1 TRANSDERM; +COLACE100 MG PO; +FLORAJEN3 CAPS460 MG PO; +FOLIC ACID1 MG PO; +IPRAT-ALBUT 0.5-3 ML INH; +LOPRESSOR25 MG PO; +MUCINEX DM ER1 EAC1 PO; +NEURONTIN600 MG PO; +NICODERM CQ1 EAC3 TRANSDERM; +PREDNISONE10 MG PO; +PROTONIX40 MG PO; +SEROQUEL XR150 MG PO; +TESSALON PERLE100 MG PO; +VALIUM10 MG PO; +VALIUM5 MG PO; +VITAMIN B-1100 M1 PO
[2020-11-11 11:23] LABS: HEMATOCRIT 43.3 % (42.0-54.0); HEMOGLOBIN 14.6 g/dL (13.5-17.5); LYMPHOCYTE ABS# 1.69 10x3/uL (1.32-3.57); MCH 31.7 pg (26.0-34.0); MCHC 33.7 g/dL (31.0-37.0); MCV 93.9 fL (80.0-100.0); MEAN PLATELET VOLUME 8.7 fL (7.4-10.4); NEUTROPHIL ABS# 31.33 10x3/uL (1.78-5.38); PLATELET COUNT 160 10x3/uL (130-400); RBC 4.61 10x6/uL (4.20-6.10); RDW 13.9 % (11.5-14.5); WBC 38.2 10x3/uL (4.8-10.8)
[2020-11-11 11:29] LABS: BILIRUBIN NEGATIVE (NEGATIVE); KETONE NEGATIVE (NEGATIVE); NITRITE NEGATIVE (NEGATIVE); UROBILINOGEN NORMAL mg/dL (< 2)
[2020-11-11 11:30] LABS: WHITE CELLS - URINE 1 HPF (0-1)
[2020-11-11 11:31] LABS: APTT 34.1 SECONDS (22.8-39.4); INR 1.29 (0.85-1.17); PROTIME 14.9 SECONDS (11.6-15.0)
[2020-11-11 11:31] LABS: BACTERIA MODERATE HPF (NONE SEEN)
[2020-11-11 11:39] LABS: LYMPHOCYTES 6 % (15-50); MONOCYTES 8 % (2-11); NEUTROPHILS 84 % (40-80)
[2020-11-11 11:40] LABS: PLATELET ESTIMATE NORMAL
[2020-11-11 11:43] LABS: UDS - AMPHET NEGATIVE QUAL (NEGATIVE); UDS - BARB NEGATIVE QUAL (NEGATIVE); UDS - BENZO POSITIVE QUAL (NEGATIVE); UDS - COCAINE NEGATIVE QUAL (NEGATIVE); UDS - OPIATE POSITIVE QUAL (NEGATIVE); UDS - PCP NEGATIVE QUAL (NEGATIVE); UDS - THC NEGATIVE QUAL (NEGATIVE)
[2020-11-11 11:53] LABS: ALKALINE PHOSPHATASE 109 U/L (30-120); ALT (SGPT) 47 U/L (10-68); CALC OSMOLALITY 281 mosm/kg (275-300); CALCIUM 7.7 mg/dL (8.5-10.1); CARBON DIOXIDE 23.4 mmol/L (21.0-32.0); CHLORIDE - SERUM 98 mmol/L (98-107); CREATININE - SERUM 3.8 mg/dL (0.6-1.3); GLUCOSE 205 mg/dL (74-106); MAGNESIUM - SERUM 2.4 mg/dL (1.8-2.4); SODIUM 131 mmol/L (136-145); UREA NITROGEN 49 mg/dL (7-18); eGFR NON AFRICAN AMERICAN 18 mL/min (90-120)
[2020-11-11 11:54] LABS: ALBUMIN 3.2 g/dL (3.4-5.0); BILIRUBIN - TOTAL 0.91 mg/dL (0.2-1.3); POTASSIUM - SERUM 6.3 mmol/L (3.5-5.1); PROTEIN - SERUM 6.9 g/dL (6.4-8.2)
[2020-11-11 11:56] LABS: CKMB 8.6 U/L (0.0-3.6); CREATINE KINASE 1108 UL (21-232)
--- NOTE | 2020-11-11 13:00 | NUR ---
20G iv STARTED TO ABDOMEN BY SETH ANDREWS
--- NOTE | 2020-11-11 13:10 | NUR ---
1300 - NOREPI STARTED AT 5 MCG/MIN
--- NOTE | 2020-11-11 14:21 | NUR ---
FSBS 172; MD CAMPBELL NOTIFIED. RECEIVED ORDER TO HOLD SLIDING SCALE INSULIN FOR NOW. CHECK FSBS EVERY 6 HOURS AND NOTIFY IF >250.
--- NOTE | 2020-11-11 14:57 | NUR ---
Report given to Zaira ANDREWS. Pt to room 2313.
--- NOTE | 2020-11-11 15:20 | NUR ---
PT ARRIVED TO UNIT AT THIS TIME VIA BED ACCOMPANIED BY HOSPITAL STAFF. DR HEMPHILL HERE UPON PT ARRIVAL. PT CALM, ABLE TO FOLLOW COMMANDS, HAS AUDIBLE CRACKLES. ON 15L NRB, SUCTIOING PROVIDED. DR HEMPHILL HAS PLACED ORDERS.
--- NOTE | 2020-11-11 15:33 | NUR ---
REC'D PT TO ICU. ALL MONITORING EQUIPMENT ATTACHED AND ALARMS SET. DR SAM AT BS. LEVOPHGED INFUSING AT 5MCG/MIN. NARCAN GTT AT 2.5MCG/KG/HR. NS AT 125.
--- NOTE | 2020-11-11 16:31 | NUR ---
RAMMOHSENACON GIVEN. PT NOW ORIENTED X 3. ANSWERS APPROPRIATELY. WILL START TO TITRATE NARCAN GTT TO OFF.
[2020-11-11 18:24] LABS: AMYLASE - SERUM 117 U/L (25-115); CALC OSMOLALITY 292 mosm/kg (275-300); CALCIUM 7.7 mg/dL (8.5-10.1); CARBON DIOXIDE 24.8 mmol/L (21.0-32.0); CHLORIDE - SERUM 102 mmol/L (98-107); CKMB 11.1 U/L (0.0-3.6); CREATININE - SERUM 3.5 mg/dL (0.6-1.3); GLUCOSE 200 mg/dL (74-106); POTASSIUM - SERUM 5.4 mmol/L (3.5-5.1); SODIUM 136 mmol/L (136-145); UREA NITROGEN 54 mg/dL (7-18); eGFR NON AFRICAN AMERICAN 20 mL/min (90-120)
[2020-11-11 18:26] LABS: CREATINE KINASE 1665 UL (21-232); LIPASE 40 U/L (73-393); TROPONIN-I 0.084 ng/mL (0.000-0.060)
--- NOTE | 2020-11-11 18:28 | NUR ---
CARDIOLOGY PAGED. AWAITING CALL BACK.
--- NOTE | 2020-11-11 19:24 | NUR ---
CONSULT CALLED TO DR BRO AND RESULTS OF TROPONIN. REPORTED CMP TO DR SAM. HR [address] CARDIZEM X1 ORDERED IV.
--- NOTE | 2020-11-11 20:51 | NUR ---
PATIENT WITH TEMP 101.2- TYLENOL ADMINISTERED FOR FEVER. Mounika THORPE RN
--- NOTE | 2020-11-11 20:54 | NUR ---
1947- CARDIZEM ADMINISTERED AT FOR TACHYCARDIA @ 148. 1948- ATIVAN ADMINISTERED FOR AGITATION AND TREMORS. 1949-BP DECREASED WITH SYSTOLIC IN 80S. LEVOPHED INCREASE TO 5MCG/MIN 2010- NARCAN GTT DECREASED TO 1MCG 2035- NARCAN GTT STOPPED.
--- NOTE | 2020-11-11 22:45 | NUR ---
2225- INCREASED LEVOPHED TO 6MCG/MIN 2240- INCREASED LEVOPHED TO 7MCG/MIN
[2020-11-12] VITALS (79 sets, daily range): BP systolic 81–1101; BP diastolic 47–103; Ht 180.3 cm; Wt 108.4 kg
[2020-11-12 00:01] LABS: CKMB 4.6 U/L (0.0-3.6); CREATINE KINASE 1317 UL (21-232); TROPONIN-I 0.108 ng/mL (0.000-0.060)
--- NOTE | 2020-11-12 00:51 | NUR ---
2326- INCREASED LEVO TO 8 2331- INCREASED LEVO TO 9 2346- INCREASED LEVO TO 10 2350- INCREASED LEVO TO 11 0017- INCREASED LEVO TO 12 0050- INCREASED LEVO TO 13
[2020-11-12 05:42] LABS: ALBUMIN 2.5 g/dL (3.4-5.0); ANION GAP 19.4 mmol/L (8-16); BILIRUBIN - TOTAL 1.03 mg/dL (0.2-1.3); CALCIUM 7.5 mg/dL (8.5-10.1); CARBON DIOXIDE 19.3 mmol/L (21.0-32.0); CREATININE - SERUM 3.4 mg/dL (0.6-1.3); POTASSIUM - SERUM 5.7 mmol/L (3.5-5.1); PROTEIN - SERUM 5.8 g/dL (6.4-8.2); VANCOMYCIN - RANDOM 8.3 ug/mL (10.0-20.0)
--- NOTE | 2020-11-12 06:20 | NUR ---
SPOKE WITH DR GALARZA ABOUT LAB RESULTS AND PATIENT CONDITION. WILL SEE PATIENT THIS AM, NO NEW ORDERS. Mounika THORPE RN
[2020-11-12 08:49] LABS: HEMATOCRIT 39.3 % (42.0-54.0); LYMPHOCYTE ABS# 1.99 10x3/uL (1.32-3.57); MCH 31.3 pg (26.0-34.0); MCHC 33.1 g/dL (31.0-37.0); MCV 94.5 fL (80.0-100.0); MEAN PLATELET VOLUME 9.1 fL (7.4-10.4); PLATELET COUNT 168 10x3/uL (130-400); RBC 4.16 10x6/uL (4.20-6.10); RDW 14.5 % (11.5-14.5); WBC 33.8 10x3/uL (4.8-10.8)
--- NOTE | 2020-11-12 10:20 | NUR ---
PTS TEMP 102.3. ICE PACKS APPLIED TO BILAT GROIN AND AXILLARY, BLANKETS REMOVED AND AIR TURNED ON. WILL CTM
[2020-11-12 12:07] LABS: EOSINOPHILS 1 % (0-7); LYMPHOCYTES 10 % (15-50); MONOCYTES 8 % (2-11); NEUTROPHILS 77 % (40-80)
[2020-11-12 12:08] LABS: PLATELET MORPHOLOGY NORMAL PLT MORPH
[2020-11-12 12:21] LABS: PLATELET ESTIMATE NORMAL
--- NOTE | 2020-11-12 17:45 | NUR ---
GRAM POSITIVE COCCI BLOOD CLUTURE RESULTS CALLED TO PING Padgett APN.
[2020-11-13] VITALS (65 sets, daily range): BP systolic 93–184; BP diastolic 50–137
--- NOTE | 2020-11-13 08:30 | NUR ---
DR. JENIFER JOHNSON. ORDERS RECEIVED.
--- NOTE | 2020-11-13 09:00 | NUR ---
WITH TREMORS IN ARMS, GARBLED SPEECH, TACHY 110S, AND FEVER 100.6. TYLENOL GIVEN FOR FEVER AND ATIVAN GIVEN FOR DTS. IS SLEEPING NOW, EASILY AROUSABLE, VSS.
[2020-11-13 09:44] LABS: HEMATOCRIT 31.5 % (42.0-54.0); HEMOGLOBIN 10.5 g/dL (13.5-17.5); LYMPHOCYTE ABS# 0.42 10x3/uL (1.32-3.57); MCH 31.3 pg (26.0-34.0); MCHC 33.3 g/dL (31.0-37.0); MCV 93.8 fL (80.0-100.0); MEAN PLATELET VOLUME 8.6 fL (7.4-10.4); NEUTROPHIL ABS# 19.47 10x3/uL (1.78-5.38); PLATELET COUNT 143 10x3/uL (130-400); RBC 3.36 10x6/uL (4.20-6.10); WBC 21.6 10x3/uL (4.8-10.8)
--- NOTE | 2020-11-13 09:45 | NUR ---
DR. TURK HERE FOR ROUNDS. ORDERS RECEIVED.
--- NOTE | 2020-11-13 10:21 | NUR ---
UPDATE GIVEN TO .
[2020-11-13 10:26] LABS: ALKALINE PHOSPHATASE 87 U/L (30-120); ALT (SGPT) 47 U/L (10-68); BILIRUBIN - TOTAL 0.37 mg/dL (0.2-1.3); CALCIUM 7.5 mg/dL (8.5-10.1); CHLORIDE - SERUM 102 mmol/L (98-107); POTASSIUM - SERUM 5.1 mmol/L (3.5-5.1); PROTEIN - SERUM 5.3 g/dL (6.4-8.2); SODIUM 136 mmol/L (136-145)
[2020-11-13 10:27] LABS: AMYLASE - SERUM 38 U/L (25-115); CALC OSMOLALITY 302 mosm/kg (275-300); CREATINE KINASE 2168 UL (21-232); CREATININE - SERUM 5.7 mg/dL (0.6-1.3); GLUCOSE 263 mg/dL (74-106); LIPASE 56 U/L (73-393); UREA NITROGEN 74 mg/dL (7-18); eGFR NON AFRICAN AMERICAN 11 mL/min (90-120)
[2020-11-13 10:28] LABS: CKMB 7.4 U/L (0.0-3.6)
--- NOTE | 2020-11-13 10:36 | NUR ---
CALLED DR. BURGESS WITH INCREASE IN CREATININE. HE SAYS HE WILL LOOK AT THE REST OF THE LABS AND BE UP HERE SHORTLY.
[2020-11-13 10:37] LABS: LYMPHOCYTES 3 % (15-50); MONOCYTES 3 % (2-11); NEUTROPHILS 79 % (40-80)
[2020-11-13 10:38] LABS: PLATELET ESTIMATE NORMAL; PLATELET MORPHOLOGY NORMAL PLT MORPH
[2020-11-14] VITALS (26 sets, daily range): BP systolic 112–152; BP diastolic 33–88
[2020-11-14 05:27] LABS: ANION GAP 19.2 mmol/L (8-16); CALCIUM 8.1 mg/dL (8.5-10.1); CARBON DIOXIDE 20.1 mmol/L (21.0-32.0); VANCOMYCIN - RANDOM 17.8 ug/mL (10.0-20.0)
[2020-11-14 05:29] LABS: BASOPHILS 0 % (0-2); EOSINOPHILS 0 % (0-7); HEMATOCRIT 33.4 % (42.0-54.0); HEMOGLOBIN 10.9 g/dL (13.5-17.5); IMMATURE GRANULOCYTES 0.7 % (0-5); LYMPHOCYTE ABS# 0.93 10x3/uL (1.32-3.57); LYMPHOCYTES 4.4 % (15-50); MCH 31.7 pg (26.0-34.0); MCHC 32.6 g/dL (31.0-37.0); MCV 97.1 fL (80.0-100.0); MEAN PLATELET VOLUME 8.9 fL (7.4-10.4); MONOCYTES 5.7 % (2-11); NEUTROPHIL ABS# 18.91 10x3/uL (1.78-5.38); NEUTROPHILS 89.2 % (40-80); PLATELET COUNT 165 10x3/uL (130-400); RBC 3.44 10x6/uL (4.20-6.10); RDW 14.4 % (11.5-14.5); WBC 21.2 10x3/uL (4.8-10.8)
[2020-11-14 06:06] LABS: CREATININE - SERUM 7.4 mg/dL (0.6-1.3)
[2020-11-14 06:07] LABS: PHOSPHOROUS 11.3 mg/dL (2.5-4.9); POTASSIUM - SERUM 6.3 mmol/L (3.5-5.1)
--- NOTE | 2020-11-14 10:01 | EC ---
PATIENT:ANGEL KAUR DATE OF SERVICE: 11/11/20 SEX: M MEDICAL RECORD: [id number] DATE OF : 68 LOCATION:[facility] D231 AGE OF PATIENT: 50 ADMISSION DATE: 11/11/20 REFERRING PHYSICIAN: INTERPRETING PHYSICIAN: LIYAH VELOZ MD ECHOCARDIOGRAM REPORT ECHO CHARGES 5 ECHO LIMITED Date: 11/12/20 CLINICAL DIAGNOSIS: ELEVATED TROP ECHOCARDIOGRAPHIC MEASUREMENTS (adult normal given) AC root (d.<3.7cm) 0 cm LV Septum d (<1.2 cm> 0 cm Valve Excursion 0 cm LV Septum (systole) 0 cm Left Atria (s.<4.0cm> 0 cm LVPW d(<1.2cm) 0 cm RV (d.<2.3cm) 0 cm LVPW (sytole) 0 cm LV diastole(<5.6CM) 0 cm MV E-F(>70mm/sec) 0 cm LV systole 0 cm LVOT Diameter 0 cm MV exc.(>10mm) 0 cm Est.ejection fraction (50-75%) 0 % DOPPLER: LVIT cm/sec A 0 cm/sec E 0 cm/sec LA 0 cm/sec RVSP 0 mmHg LVOT 0 cm/sec AOP1/2T 0 m/s Asc. Ao 0 cm/sec RVOT 0 cm/sec RA 0 cm/sec PA 0 cm/sec AV Gradient Peak 0 mmHg AV Mean 0 mmHg AV Area 0 cm MV Gradient Peak 0 mmHg MV Mean 0 mmHg MV Area 0 cm COMMENTS: Stamp Maker: Matheus [facility] Director Client: 3 Dr. Albert TAPE# Pericardial Effusion N DATE OF SERVICE: Adequate 2D, color-flow imaging, spectral Doppler, and M-Mode FINDINGS: Grossly, no LVH. Left ventricular internal dimensions are normal. Wall motion is normal. EF is greater than or equal to 55%. Aortic valve is tricuspid. No evidence of stenosis by Doppler interrogation. Left atrium is grossly normal. Mitral valve shows no prolapse. Trivial MR. Right side is grossly normal. Trivial TR. ECHOCARDIOGRAM REPORT [id number] ANGEL KAUR TRANSINT:[id number] Voice Confirmation ID: [id number] DOCUMENT ID: [id number] LIYAH VELOZ MD at 1001 CC: [id number] DICTATION DATE: 11/13/20809 MEDICAL DOCTOR: 11/13/20 0843 ADM IN [facility] [address] [facility], [facility]
[2020-11-14 10:42] LABS: ANION GAP 17.8 mmol/L (8-16); CALCIUM 7.6 mg/dL (8.5-10.1); CARBON DIOXIDE 20.6 mmol/L (21.0-32.0); CREATININE - SERUM 7.8 mg/dL (0.6-1.3)
[2020-11-14 10:43] LABS: POTASSIUM - SERUM 6.4 mmol/L (3.5-5.1)
--- NOTE | 2020-11-14 14:54 | NUR ---
Nutrition follow-up: Pt discussed during IDT team rounds Pt s/p trialysis cath placed for possible diaylsis 2/2 elevated K NPO/clear liquids at this time pt continues to be lethargic per nurse and RD observation Labs reviewed Wt: 249# Now with DT's +BM Will need nutrition support started within 24-48 hours if po intake continues to be poor due to lethargy. RDN follow-up: 11/15/20
--- NOTE | 2020-11-14 14:55 | NUR ---
Pt resting in bed with eyes closed, no distress noted. Pt has had his HD cath placed and is now receiving dialysis, no acute distress noted.
[2020-11-15] VITALS (23 sets, daily range): BP systolic 131–191; BP diastolic 62–105
[2020-11-15 05:10] LABS: BASOPHILS 0.1 % (0-2); CALCIUM 7.4 mg/dL (8.5-10.1); CREATININE - SERUM 6.7 mg/dL (0.6-1.3); EOSINOPHILS 0 % (0-7); HEMATOCRIT 26.2 % (42.0-54.0); HEMOGLOBIN 8.8 g/dL (13.5-17.5); IMMATURE GRANULOCYTES 0.7 % (0-5); LYMPHOCYTE ABS# 0.46 10x3/uL (1.32-3.57); LYMPHOCYTES 3.8 % (15-50); MCH 31.1 pg (26.0-34.0); MCHC 33.6 g/dL (31.0-37.0); MCV 92.6 fL (80.0-100.0); MEAN PLATELET VOLUME 8.6 fL (7.4-10.4); MONOCYTES 8.2 % (2-11); NEUTROPHIL ABS# 10.47 10x3/uL (1.78-5.38); NEUTROPHILS 87.2 % (40-80); PLATELET COUNT 158 10x3/uL (130-400); RBC 2.83 10x6/uL (4.20-6.10); VANCOMYCIN - RANDOM 13.7 ug/mL (10.0-20.0)
[2020-11-15 05:18] LABS: ANION GAP 10.6 mmol/L (8-16); CARBON DIOXIDE 28.5 mmol/L (21.0-32.0); PHOSPHOROUS 7.5 mg/dL (2.5-4.9); POTASSIUM - SERUM 4.1 mmol/L (3.5-5.1)
[2020-11-15 07:13] LABS: CREATINE KINASE 453 UL (21-232)
[2020-11-15 11:11] LABS: HEPATITIS C ANTIBODY >11.0 S/CO RAT (0.0-0.9)
--- NOTE | 2020-11-15 11:17 | NUR ---
DIALYSIS AT BEDSIDE. DIALYSIS STARTED AT 1115.
--- NOTE | 2020-11-15 12:06 | NUR ---
Nutrition follow-up: Pt discussed during IDT team rounds Sleeping during rounds; too sedated per Dr. Chatterjee Diet order: clear liquids. Pt too sedated to take any PO at this time Labs reviewed Dialysis started due to elevated K; K WNL today Wt: 264# Recommend starting TF via NGT if medically feasible Nerpo started @ 25 ml/hr with increase to goal rate of 45 ml/hr RDN follow-up: 11/19/20
[2020-11-15 12:17] LABS: ANION GAP 9.9 mmol/L (8-16); CALCIUM 7.7 mg/dL (8.5-10.1); CARBON DIOXIDE 31.5 mmol/L (21.0-32.0); CREATININE - SERUM 5.4 mg/dL (0.6-1.3)
[2020-11-15 12:18] LABS: POTASSIUM - SERUM 3.4 mmol/L (3.5-5.1)
--- NOTE | 2020-11-15 17:16 | NUR ---
PT AROUSABLE BY PHYSICAL STIMULI. SLURRED SPEECH AND FALLS BACK TO SLEEP. PO MEDS NOT GIVEN TODAY R/T UNABLE TO TOLERATE R/T SEDATION STATUS. TURK AWARE AND ORDERED TO NOT GIVE LIBRIUM AND ATIVAN UNTIL PT IS MORE ALERT AND AWAKE.
[2020-11-16] VITALS (24 sets, daily range): BP systolic 117–160; BP diastolic 69–104
[2020-11-16 04:36] LABS: BASOPHILS 0.1 % (0-2); EOSINOPHILS 0.2 % (0-7); HEMATOCRIT 26.2 % (42.0-54.0); HEMOGLOBIN 8.6 g/dL (13.5-17.5); IMMATURE GRANULOCYTES 0.4 % (0-5); LYMPHOCYTE ABS# 1.01 10x3/uL (1.32-3.57); MCH 30.3 pg (26.0-34.0); MCHC 32.8 g/dL (31.0-37.0); MCV 92.3 fL (80.0-100.0); MEAN PLATELET VOLUME 8.2 fL (7.4-10.4); MONOCYTES 6.5 % (2-11); NEUTROPHIL ABS# 9.42 10x3/uL (1.78-5.38); NEUTROPHILS 83.8 % (40-80); PLATELET COUNT 167 10x3/uL (130-400); RBC 2.84 10x6/uL (4.20-6.10); RDW 13.6 % (11.5-14.5); WBC 11.2 10x3/uL (4.8-10.8)
[2020-11-16 05:16] LABS: ALBUMIN 1.7 g/dL (3.4-5.0); ANION GAP 14.3 mmol/L (8-16); BILIRUBIN - DIRECT 0.13 mg/dL (0.00-0.30); BILIRUBIN - INDIRECT 0.33 mg/dL (0.00-1.00); BILIRUBIN - TOTAL 0.46 mg/dL (0.2-1.3); CALCIUM 7.5 mg/dL (8.5-10.1); CREATININE - SERUM 6.7 mg/dL (0.6-1.3); PHOSPHOROUS 6.1 mg/dL (2.5-4.9); POTASSIUM - SERUM 3.3 mmol/L (3.5-5.1); PROTEIN - SERUM 5.8 g/dL (6.4-8.2); VANCOMYCIN - RANDOM 10.5 ug/mL (10.0-20.0)
--- NOTE | 2020-11-16 10:20 | NUR ---
DIALYSIS AT BEDSIDE. VS STABLE.
--- NOTE | 2020-11-16 14:09 | NUR ---
DIALYSIS TREATMENT TODAY, NO FLUID REMOVAL PER TODAY'S ORDER. TOLERATED 2.5 ORDERED TREATMENT WELL. ENDING BLOOD PRESSURE 168/88. REPORT GIVEN TO TOBI BROCK RN
--- NOTE | 2020-11-16 14:13 | NUR ---
HD COMPLETE. VSS.
[2020-11-17] VITALS (26 sets, daily range): BP systolic 110–159; BP diastolic 59–100
[2020-11-17 04:53] LABS: BASOPHILS 0.1 % (0-2); EOSINOPHILS 0.9 % (0-7); HEMATOCRIT 28.3 % (42.0-54.0); HEMOGLOBIN 9.4 g/dL (13.5-17.5); IMMATURE GRANULOCYTES 0.8 % (0-5); LYMPHOCYTE ABS# 0.93 10x3/uL (1.32-3.57); LYMPHOCYTES 9.7 % (15-50); MCH 30.9 pg (26.0-34.0); MCHC 33.2 g/dL (31.0-37.0); MCV 93.1 fL (80.0-100.0); MONOCYTES 7.5 % (2-11); NEUTROPHIL ABS# 7.71 10x3/uL (1.78-5.38); PLATELET COUNT 158 10x3/uL (130-400); RBC 3.04 10x6/uL (4.20-6.10); RDW 13.6 % (11.5-14.5); WBC 9.5 10x3/uL (4.8-10.8)
[2020-11-17 05:06] LABS: ANION GAP 9.1 mmol/L (8-16); CALCIUM 8.3 mg/dL (8.5-10.1); CARBON DIOXIDE 32.2 mmol/L (21.0-32.0); PHOSPHOROUS 5.2 mg/dL (2.5-4.9); POTASSIUM - SERUM 3.3 mmol/L (3.5-5.1); VANCOMYCIN - RANDOM 14.1 ug/mL (10.0-20.0)
--- NOTE | 2020-11-17 09:50 | NUR ---
ON BEDPAN SMALL LIQUID BROWN BM. STATES HIS BELLY IS HURTING HIM. ABD DISTENDED WITH BOWEL SOUNDS. ALERT BUT HAS CONFUSING CONVERSATIONS. TURNS SELF FROM SIDE TO SIDE AND CAN PULL SELF UP IN BED. TRIALYSIS CATHETER LEFT SUBCLAVIAN INFUSING WITH PLASAMALYTE AT 75 ML HOUR. SHANNON CATH PATENT, DRINKING LEMON DIAZ DRINKS. TAKE A COUPLE GUESS TO NAME WHERE HE WAS. PLACED SELF ON BEDPAN. REDNESS NOTED BETWEEN LEGS AND BUTTOCK.
--- NOTE | 2020-11-17 11:19 | NUR ---
DIALYSIS IN PROGRESS. TOLERATING WELL. NAPPING AT INTERVALS. NO DISTRESS. DR. CARRASCO HERE
--- NOTE | 2020-11-17 11:20 | NUR ---
WILL GIVEN VANCOMYCIN WHEN DIALYSIS COMPLTE
--- NOTE | 2020-11-17 18:05 | NUR ---
HERE TODAY, UPDATE GIVEN. ALERT AT TIMES, THEN MAKES STATEMENTS THAT DON'T MAKE SENSE. GOOD URINE OUTPUT. MONITOR SR. NAPPING AT INTERVALS. NO DISTRESS OXYGEN AT 2 LITERS PER NC
[2020-11-18] VITALS (21 sets, daily range): BP systolic 15–157; BP diastolic 40–100
--- NOTE | 2020-11-18 04:35 | NUR ---
PT ALERT AND ORIENTED WITH SOME CONFUSION NOTED AT TIMES. MEDS ADMINISTERED AND WELL TOLERATED. PT HAD 3 LIQUID DIARRHEA AND PREFER SITTING ON BEDSIDE COMMODE. UOP 1650. VSS WITH METOPROLOL ADMINISTERED. NO SIGNS OF DISTRESS NOTED. PT IN BED WITH EYES CLOSED. BED IN LOWEST POSITION. PT ORIENTED ON USE OF CALL BUTTON MULTIPLE TIMES.
[2020-11-18 05:39] LABS: BASOPHILS 0.1 % (0-2); EOSINOPHILS 1.2 % (0-7); HEMATOCRIT 29.5 % (42.0-54.0); HEMOGLOBIN 9.7 g/dL (13.5-17.5); IMMATURE GRANULOCYTES 2.5 % (0-5); LYMPHOCYTES 14.5 % (15-50); MCH 30.4 pg (26.0-34.0); MCHC 32.9 g/dL (31.0-37.0); MCV 92.5 fL (80.0-100.0); MEAN PLATELET VOLUME 8.2 fL (7.4-10.4); MONOCYTES 8.6 % (2-11); NEUTROPHIL ABS# 5.05 10x3/uL (1.78-5.38); NEUTROPHILS 73.1 % (40-80); RBC 3.19 10x6/uL (4.20-6.10); RDW 13.2 % (11.5-14.5)
[2020-11-18 05:40] LABS: PLATELET COUNT 195 10x3/uL (130-400); WBC 6.9 10x3/uL (4.8-10.8)
[2020-11-18 05:54] LABS: ANION GAP 11.6 mmol/L (8-16); CALCIUM 8.3 mg/dL (8.5-10.1); CARBON DIOXIDE 29.8 mmol/L (21.0-32.0); CREATININE - SERUM 5.3 mg/dL (0.6-1.3); PHOSPHOROUS 4.3 mg/dL (2.5-4.9); POTASSIUM - SERUM 3.4 mmol/L (3.5-5.1); VANCOMYCIN - RANDOM 22.6 ug/mL (10.0-20.0)
[2020-11-19] VITALS (10 sets, daily range): BP systolic 115–147; BP diastolic 67–89
[2020-11-19 04:58] LABS: BASOPHILS 0.3 % (0-2); EOSINOPHILS 1.6 % (0-7); HEMATOCRIT 28.6 % (42.0-54.0); HEMOGLOBIN 9.2 g/dL (13.5-17.5); IMMATURE GRANULOCYTES 3.5 % (0-5); LYMPHOCYTE ABS# 1.31 10x3/uL (1.32-3.57); MCH 30.3 pg (26.0-34.0); MCHC 32.2 g/dL (31.0-37.0); MCV 94.1 fL (80.0-100.0); MEAN PLATELET VOLUME 7.9 fL (7.4-10.4); MONOCYTES 6.5 % (2-11); NEUTROPHIL ABS# 4.78 10x3/uL (1.78-5.38); NEUTROPHILS 69.1 % (40-80); PLATELET COUNT 217 10x3/uL (130-400); RBC 3.04 10x6/uL (4.20-6.10); RDW 13.4 % (11.5-14.5); WBC 6.9 10x3/uL (4.8-10.8)
[2020-11-19 05:26] LABS: CREATININE - SERUM 6.2 mg/dL (0.6-1.3); VANCOMYCIN - TROUGH 14.2 ug/mL (10.0-20.0)
[2020-11-19 08:41] LABS: ALBUMIN 2.1 g/dL (3.4-5.0); ANION GAP 13.1 mmol/L (8-16); BILIRUBIN - TOTAL 0.3 mg/dL (0.2-1.3); CALCIUM 8.3 mg/dL (8.5-10.1); CARBON DIOXIDE 28.4 mmol/L (21.0-32.0); POTASSIUM - SERUM 3.5 mmol/L (3.5-5.1); PROTEIN - SERUM 6.1 g/dL (6.4-8.2)
--- NOTE | 2020-11-19 10:36 | NUR ---
Nutrition follow-up: Pt discussed in IDT team rounds Pt up to BS commode; assisting Diet order continues clear liquids Nurse reports pt choked this am on clear liquids Labs reviewed Wt: 194# Swallow evaluation ordered RDN follow-up: 11/21/20
--- NOTE | 2020-11-19 19:30 | NUR ---
PT SITTING UP IN BED WITHOUT DISTRESS, AT BEDSIDE. DENIES NEEDS AT THIS TIME. CL IN REACH
--- NOTE | 2020-11-19 21:00 | NUR ---
PT A0X4, VERY ANXIOUS. CONCERNED ABOUT HIS MEDICATIONS. HAS NOT RECIEVED LIBRIUM SINCE 8AM. DID NOT GET 1500 DOSE AND IS NOT DUE FOR ANOTHER DOSE UNTIL MIDNIGHT. HR 110. PT TRYING TO PACE ROOM EVEN THOUGH THIS NURSE EDUCATED PT ON RISK OF FALLING WITH THE MEDICATIONS HE IS TAKING AND THAT HE IS STILL WEAK. GAVE PT ATIVAN TO HELP CALM HIM, PT NOW SITTING IN BED WITH AT THIS TIME
--- NOTE | 2020-11-20 01:30 | NUR ---
AFTER GIVING PT ATIVAN HE WENT TO SLEEP AND IS STILL ASLEEP AT THIS TIME. PT WILL WAKE UP TO TOUCH AND VERBAL STIMULI BUT IMMEDIATELY FALLS BACK ASLEEP, CANNOT WAKE UP LONG ENOUGH TO TAKE LIBRIUM, NOT GIVEN AT THIS TIME. VSS. CL IN REACH
--- NOTE | 2020-11-20 05:20 | NUR ---
PT WAKES TO VERBAL STIMULI BUT STILL LETHARGIC AFTER ATIVAN. FOLLOWED COMMANDS TO TURN TO BACK SO THIS NURSE COULD DRAW BLOOD BUT IMMEDIATELY FALLS BACK TO SLEEP. FSBS 138. LYING IN BED BESIDE PT. VSS. CL IN REACH
[2020-11-20 06:11] LABS: BASOPHILS 0.2 % (0-2); EOSINOPHILS 1.4 % (0-7); HEMATOCRIT 27.9 % (42.0-54.0); IMMATURE GRANULOCYTES 3.8 % (0-5); LYMPHOCYTE ABS# 1.39 10x3/uL (1.32-3.57); LYMPHOCYTES 16.6 % (15-50); MCH 30.2 pg (26.0-34.0); MCHC 32.3 g/dL (31.0-37.0); MCV 93.6 fL (80.0-100.0); MEAN PLATELET VOLUME 7.8 fL (7.4-10.4); MONOCYTES 6.1 % (2-11); NEUTROPHILS 71.9 % (40-80); PLATELET COUNT 227 10x3/uL (130-400); RBC 2.98 10x6/uL (4.20-6.10); RDW 13.3 % (11.5-14.5); WBC 8.4 10x3/uL (4.8-10.8)
[2020-11-20 06:36] LABS: ANION GAP 9.8 mmol/L (8-16); BILIRUBIN - TOTAL 0.27 mg/dL (0.2-1.3); CALCIUM 8.4 mg/dL (8.5-10.1); CARBON DIOXIDE 31.2 mmol/L (21.0-32.0); CREATININE - SERUM 4.9 mg/dL (0.6-1.3); MAGNESIUM - SERUM 1.7 mg/dL (1.8-2.4); PROTEIN - SERUM 6.5 g/dL (6.4-8.2); VANCOMYCIN - RANDOM 10.3 ug/mL (10.0-20.0)
[2020-11-20 07:00] VITALS: BP 134/86
[2020-11-20 12:00] VITALS: BP 136/84
[2020-11-20 15:00] VITALS: BP 141/83
[2020-11-20 19:00] VITALS: BP 136/69
[2020-11-21] VITALS (19 sets, daily range): BP systolic 103–132; BP diastolic 63–87
--- NOTE | 2020-11-21 05:45 | NUR ---
1929- 11/21/20 -DURING ROUNDING PT ABD. DISTENTION AND FIRMNESS OBSERVED. PT COMPLAINED OF PAIN IN ABD. PT SOB. CHANO PRADO NOTIFIED KUB ORDERED. RESULTS CALLED BACK TO [facility], PT MADE NPO AND SURGERY CONSULT ORDERED. SEE RESULTS. OVER THE NEXT FEW HOURS PT BECAME INCREASINGLY BILIGERENT ACTING AND WORDS WERE ICOMPREHENSIBLE. [facility] CALLED. UPON FURTHER INVESTIGATION PT HAD HOME MEDS SERAQUIL AND GABBAPENTION ON PERSON. THINKS HE MAY HAVE TAKEN AN UNKOWN AMOUNT BUT WASN'T 100%. CARLOS ALBERTO ROTHMAN RN AND MYSELFINSTRUCTED TO TAKE HOME AND SHE DID. SHE STATED THIS IS HOW HE WAS ACTING WHEN SHE CALLED AMBULANCE. WAS ABLE TO GET PT INTO BED AND CALMED. 0545-THIS DAY. PT TEMP ELEVATED 102.1 HR 137, BP-110/67. [facility] ICU, HOUSE SUP, AND CHANO PRADO NOTIFIED AT THIS TIME. PT TRANSFERED TO ICU AT THIS TIME. RENAL PAGED FOR NOTIFIACTION AT THIS TIME. THIS NURSE VERBALLY INFORMED DR. BURGESS WHO VERBALLY ACKNOWLEDGED AND ASKED THAT THIS BE CALLED TO [employer]OP [employer] COMPUTER EDUCATION PROFESSOR. PAGED ANOTHER TIME END OF SHIFT. WAITING FOR CALLBACK. THIS NURSE DIDN'T RECIEVE. PASSED TO ICU.
[2020-11-21 06:25] LABS: BASOPHILS 0.1 % (0-2); EOSINOPHILS 1.2 % (0-7); HEMATOCRIT 26.7 % (42.0-54.0); HEMOGLOBIN 8.7 g/dL (13.5-17.5); IMMATURE GRANULOCYTES 2.5 % (0-5); LYMPHOCYTE ABS# 1.53 10x3/uL (1.32-3.57); LYMPHOCYTES 19.9 % (15-50); MCH 30.2 pg (26.0-34.0); MCHC 32.6 g/dL (31.0-37.0); MCV 92.7 fL (80.0-100.0); MEAN PLATELET VOLUME 7.8 fL (7.4-10.4); MONOCYTES 5.3 % (2-11); NEUTROPHIL ABS# 5.47 10x3/uL (1.78-5.38); PLATELET COUNT 226 10x3/uL (130-400); RBC 2.88 10x6/uL (4.20-6.10); RDW 13.3 % (11.5-14.5); WBC 7.7 10x3/uL (4.8-10.8)
[2020-11-21 06:57] LABS: ALBUMIN 2.2 g/dL (3.4-5.0); ANION GAP 12.1 mmol/L (8-16); BILIRUBIN - TOTAL 0.25 mg/dL (0.2-1.3); CALCIUM 8.3 mg/dL (8.5-10.1); CARBON DIOXIDE 27.9 mmol/L (21.0-32.0); CREATININE - SERUM 4.8 mg/dL (0.6-1.3); PHOSPHOROUS 5.6 mg/dL (2.5-4.9); PROTEIN - SERUM 6.8 g/dL (6.4-8.2)
--- NOTE | 2020-11-21 07:07 | NUR ---
SPOKE WITH CHANO PRADO. PT TRANSFERRED FROM 2110 TO 2306 DUE TO POSSIBLE SEPSIS. AMS, TACHYCARDIA, INCREASED TEMP.
--- NOTE | 2020-11-21 07:20 | NUR ---
pt laying in bed, responds to verbal stimuli but is very drowsey and confused, pt urinated in the bed and small bm noted, cat care given and linens changed, pt positioned for comfort, mwill monitor
--- NOTE | 2020-11-21 09:30 | NUR ---
ng tube curled up in the back of pts throat, ng tube removed and new ng tube inserted in left nare, placement verified with air bolus, pt tolerated well, condem cath placed on pt at this time also
--- NOTE | 2020-11-21 09:40 | NUR ---
temp 101.8, prn tylenol given at this time
--- NOTE | 2020-11-21 11:44 | NUR ---
urine sample sent to the lab
--- NOTE | 2020-11-21 12:15 | NUR ---
Nutrition follow-up: Pt now in ICU due to possible sepsis Diet: Renal PO intake has been ~75% average of most meals on floor Now with NGT->LIWS and NPO Dialysis on hold Labs reviewed Wt: 260# RDN will follow-up: 11/23/20
[2020-11-21 12:16] LABS: UDS - AMPHET NEGATIVE QUAL (NEGATIVE); UDS - BARB NEGATIVE QUAL (NEGATIVE); UDS - BENZO POSITIVE QUAL (NEGATIVE); UDS - COCAINE NEGATIVE QUAL (NEGATIVE); UDS - OPIATE NEGATIVE QUAL (NEGATIVE); UDS - PCP NEGATIVE QUAL (NEGATIVE); UDS - THC NEGATIVE QUAL (NEGATIVE)
[2020-11-21 12:57] LABS: BILIRUBIN NEGATIVE (NEGATIVE); KETONE NEGATIVE (NEGATIVE); NITRITE NEGATIVE (NEGATIVE); UROBILINOGEN NORMAL mg/dL (< 2)
[2020-11-21 12:58] LABS: BACTERIA FEW HPF (NONE SEEN); SQUAMOUS EPITHELIAL 0-5 HPF (0-4); WHITE CELLS - URINE OCC HPF (0-1)
--- NOTE | 2020-11-21 13:40 | NUR ---
pt pulled out ng tube at this time, Dr. Chaney aware and said to leave ng tube out at this time, will monitor
--- NOTE | 2020-11-21 16:20 | CN ---
PATIENT NAME:ANGEL KAUR MEDICAL RECORD: [id number] : 68 LOCATION:[id number] ADMIT DATE: 11/11/20 ACCOUNT: [id number] CONSULTING PHYSICIAN: YOBANY JAVIER MD REFERRING PHYSICIAN: LIYAH CAMPBELL MD DATE OF CONSULTATION: 11/20/2020 IDENTIFYING DATA: The patient is 50 years old and he is admitted to the hospital secondary to sepsis and opiate overdose. CHIEF COMPLAINT: None. HISTORY OF PRESENT ILLNESS: The patient has a very long and somewhat convoluted longitudinal history. He unfortunately is very cooperative and verbal, but does not tell a coherent, linear explanation of the circumstances. With some difficulty, I am able to follow what he is saying and his does help. I do not get the sense that he is trying to be deliberately deceptive in some way, but certainly concise coherent explanations are not something he is capable of providing. The summation of all of this is that he claims that he used to have a substance abuse problem, has been through treatment and no longer does have a substance abuse problem. He also says that he inadvertently took more medication than he should have and that he took a benzodiazepine with the opiates, which is what caused the apparent overdose. The benzodiazepine was not his but he still does not believe he has a substance abuse problem. He also tells me that he does not overtake his narcotics, which he is on chronically. He denies neurovegetative depressive symptoms and psychiatric history. He denies any thoughts of harming himself or others. ASSESSMENT: 1. Adjustment disorder with mixed emotional features 2. Accidental overdose. 3. Rule out substance abuse. PLAN: The patient tells me as mentioned above that he was not trying to hurt himself and given the circumstances and the acknowledgement by his , who is present, I accept the explanation. I do not think that there is any concern that he is in some way directly suicidal at this time. Furthermore, he does not wish to have any outpatient mental health treatment, and based on his presentation, it does not appear that any would be indicated. I am less convinced about his explanation that he no longer has a substance abuse problem, but again he does not fell he does and does not want treatment. Regarding his longitudinal medical history, he adamantly denies that he left the hospital AMA says that he was discharged and has always cooperated with medical treatment. This contradicts information in the medical record, but he and his strongly disagree. From a mental health standpoint, he may be discharged when medically stable. There is no recommendation for mental health or substance abuse follows up based upon the explanations given above. TRANSINT:[id number] Voice Confirmation ID: [id number] DOCUMENT ID: [id number] CONSULT REPORT [id number] ANGEL KAUR, YOBANY PENA at 1620 CC: [id number] DICTATION DATE: 11/20/20 1653 MANAGER WELLNESS: 11/21/20 0020 ADM IN [facility] [address] [place] [address]
--- NOTE | 2020-11-21 17:18 | NUR ---
pt asleep, no acute distress noted at this time, will monitor
--- NOTE | 2020-11-21 17:47 | NUR ---
dr munoz notified of critical K of 2.8, ordered to follow protocol replacement
[2020-11-22] VITALS (17 sets, daily range): BP systolic 107–144; BP diastolic 54–89
[2020-11-22 03:50] LABS: BASOPHILS 0.1 % (0-2); EOSINOPHILS 1.1 % (0-7); HEMATOCRIT 29.2 % (42.0-54.0); HEMOGLOBIN 9.3 g/dL (13.5-17.5); IMMATURE GRANULOCYTES 1.6 % (0-5); LYMPHOCYTES 11.3 % (15-50); MCH 30.6 pg (26.0-34.0); MCHC 31.8 g/dL (31.0-37.0); MEAN PLATELET VOLUME 8.2 fL (7.4-10.4); MONOCYTES 5.5 % (2-11); NEUTROPHIL ABS# 7.14 10x3/uL (1.78-5.38); NEUTROPHILS 80.4 % (40-80); PLATELET COUNT 266 10x3/uL (130-400); RBC 3.04 10x6/uL (4.20-6.10); RDW 13.5 % (11.5-14.5); WBC 8.9 10x3/uL (4.8-10.8)
[2020-11-22 03:51] LABS: MCV 96.1 fL (80.0-100.0)
[2020-11-22 04:02] LABS: ALBUMIN 2.1 g/dL (3.4-5.0); ANION GAP 12.5 mmol/L (8-16); BILIRUBIN - TOTAL 0.3 mg/dL (0.2-1.3); CALCIUM 8.6 mg/dL (8.5-10.1); CARBON DIOXIDE 29.7 mmol/L (21.0-32.0); CREATININE - SERUM 4.4 mg/dL (0.6-1.3); PHOSPHOROUS 6.2 mg/dL (2.5-4.9); VANCOMYCIN - RANDOM 17.5 ug/mL (10.0-20.0)
[2020-11-22 04:03] LABS: POTASSIUM - SERUM 4.2 mmol/L (3.5-5.1)
--- NOTE | 2020-11-22 05:48 | NUR ---
Patient slept most of the night, but woke up a few times yelling, demanding to see his , and insisting that we have have something that belongs to him. Patient goes in out of confusion. Patient is currently resting well.
--- NOTE | 2020-11-22 07:30 | NUR ---
LAYING IN BED RESTING, ALERT AND ORIENTED, DENIES PAIN OR NEEDS AT THIS TIME, WILL MONITOR
--- NOTE | 2020-11-22 08:00 | NUR ---
BREAKFAST TRAY SERVED, PT SITTING UP FEEDING SELF, CALL LIGHT IN REACH, WILL MONITOR
--- NOTE | 2020-11-22 18:15 | NUR ---
PATIENT RECIEVED TO UNIT FROM ICU. LUNGS CLEAR ON AUSCULTATION. BOWEL SOUNDS HYPOACTIVE. REPORTS BM POSSIBLY YESTERDAY BUT WAS "OUT OF IT." NO PAIN REPORTED AT THIS TIME. NO EDEMA OR WOUNDS. GOT UP FROM WHEELCHAIR TO BED INDEPENDENTLY. PARTICIPATES IN CONVERSATION WITH NURSE APPROPRIATELY.
--- NOTE | 2020-11-23 04:33 | NUR ---
I have reviewed this patient and I concur with the Shift Assessment completed by the Licensed Practical Nurse today this shift.
[2020-11-23 05:16] LABS: BASOPHILS 0.2 % (0-2); EOSINOPHILS 1.4 % (0-7); HEMATOCRIT 28.1 % (42.0-54.0); HEMOGLOBIN 8.9 g/dL (13.5-17.5); IMMATURE GRANULOCYTES 1.3 % (0-5); LYMPHOCYTE ABS# 1.53 10x3/uL (1.32-3.57); LYMPHOCYTES 16.4 % (15-50); MCH 29.9 pg (26.0-34.0); MCHC 31.7 g/dL (31.0-37.0); MCV 94.3 fL (80.0-100.0); MEAN PLATELET VOLUME 8.2 fL (7.4-10.4); MONOCYTES 5.9 % (2-11); NEUTROPHIL ABS# 6.98 10x3/uL (1.78-5.38); NEUTROPHILS 74.8 % (40-80); PLATELET COUNT 259 10x3/uL (130-400); RBC 2.98 10x6/uL (4.20-6.10); RDW 13.1 % (11.5-14.5); WBC 9.3 10x3/uL (4.8-10.8)
[2020-11-23 05:35] LABS: ALBUMIN 2.1 g/dL (3.4-5.0); ANION GAP 13.6 mmol/L (8-16); BILIRUBIN - TOTAL 0.18 mg/dL (0.2-1.3); CALCIUM 8.1 mg/dL (8.5-10.1); CARBON DIOXIDE 27.6 mmol/L (21.0-32.0); CREATININE - SERUM 3.6 mg/dL (0.6-1.3); PROTEIN - SERUM 7.1 g/dL (6.4-8.2); VANCOMYCIN - RANDOM 18.2 ug/mL (10.0-20.0)
[2020-11-23 05:39] LABS: PHOSPHOROUS 3.6 mg/dL (2.5-4.9); POTASSIUM - SERUM 3.2 mmol/L (3.5-5.1)
--- NOTE | 2020-11-23 07:00 | NUR ---
PT LYING IN BED. RESP EVEN AND UNLABORED. AAOX4. NO DISTRESS NOTED. REQUEST TYLENOL FOR BACK PAIN. PRN TYLENOL ADMINISTERED. DENIES ANY OTHER NEEDS AT THIS TIME. CLIR. BED IN LOWEST POSITION. SIDE RAILS X2
[2020-11-23 07:47] VITALS: BP 100/61
--- NOTE | 2020-11-23 12:05 | NUR ---
WENT TO ROOM TRYING TO START IV FOR ANTIBIOTICS. INSTRUCTED TRIALYSIS NURSE PORT NOT PATENT AT PRESENT. STATES DOES NOT WANT IV OR ANTIBIOTICS THAT ARE NOT DOING ANY GOOD. WANTS TRIALYSIS OUT AND JUST TO GO HOME. WILL NOTIFY CHARGE ACCOUNT CLERK.
--- NOTE | 2020-11-23 12:06 | NUR ---
PT DENIED IV. CHARGE NURSE, PRISCILA ANDREWS, EXPLAINED IMPORTANCE OF IV ACCESS FOR IV ANTIBIOTICS. PT VERBALIZED UNDERSTANDING. WILL NOTIFY CHEO MDADEN.
[2020-11-23 12:14] VITALS: BP 142/80
--- NOTE | 2020-11-23 13:45 | NUR ---
NUTRITION FOLLOW UP: INTERVIEW: Met with patient this afternoon. He stated his appetite is good. He denied any new issues with nausea, vomiting, diarrhea, constipation, or chewing/swallowing his food. DIET: Renal Diet PO INTAKE: 81% avg for last 6 meals BM: x 2 on 11/22 SIG MEDS: Probiotic, Humalog, KCl, MVI, Thiamine, Protonix SIG LABS: K-3.3(L), Cr-3.6(H), Ca-8.1(L), Mg-1.7(L) POC Glucose- 162, 148, 163, 129 RECOMMENDATIONS: Continue Renal diet as tolerated Offer nutritional supplements if PO intake becomes <50% avg for meals RD to follow up on 11/27 RD TO FOLLOW UP ON 11/27
[2020-11-23] MEDS ORDERED: LIBRIUM5 MG PO (15:52)
--- NOTE | 2020-11-23 15:56 | NUR ---
PT LEFT HOSPITAL BEFORE PAPERWORK WAS PRINTED AND SIGNED. CHEO MADDEN AWARE. TRIALYSIS PULLED APPROXIATELY 1 HOUR PRIOR TO PT LEAVING. INSTRUCTIONS GIVEN ABOUT WOUND CARE AND TO USE ARM MINIMALLY FOR SEVERAL HOURS.
== END 2020-11-23 16:32 | disposition home or self-care (01) | DRG 871 ==
LOC: D.ER 10:18 → D.M2 14:32 → D.ICU 14:32 → D.M2 11-19 11:01 → D.ICU 11-21 06:48 → D.M2 11-22 17:07
PROVIDERS: Family Medicine; Internal Medicine Nephrology; Internal Medicine Pulmonary Disease; ADMIT Family Medicine; ATTEND Family Medicine
PROC: 05H633Z Insertion of Infusion Device into Left Subclavian Vein, Percutaneous Approach (ICD-10-PCS; principal; 2020-11-14)
DX: A41.9 Sepsis, unspecified organism (principal); J18.9 Pneumonia, unspecified organism; G92 Toxic encephalopathy; J96.91 Respiratory failure, unspecified with hypoxia; R65.21 Severe sepsis with septic shock; R04.2 Hemoptysis; N17.9 Acute kidney failure, unspecified; E87.2 Acidosis; F17.203 Nicotine dependence unspecified, with withdrawal; E87.5 Hyperkalemia; T40.2X1A Poisoning by other opioids, accidental (unintentional), initial encounter; Z91.19 Patient's noncompliance with other medical treatment and regimen; B18.2 Chronic viral hepatitis C; I10 Essential (primary) hypertension; K74.60 Unspecified cirrhosis of liver; E79.0 Hyperuricemia without signs of inflammatory arthritis and tophaceous disease